=== PATIENT | male | born 1955 | race African-American/Black ===

== ENCOUNTER 2022-06-04 22:31 | Inpatient (IN) | payer OTHER, MEDICAID ==
[~2022-06-04] VITALS: Ht 182.9 cm; Wt 102.9 kg
[2022-06-04] MEDS ORDERED: SODIUM CHLORIDE 0.9% 1,000 ML IV ONE ×2 (23:30)
[2022-06-04 23:50] LABS: Albumin 3.3 g/dL (3.4-5.0); BUN/Creatinine Ratio 10.6; Calcium 8.6 mg/dL (8.5-10.1); Potassium 3.7 mmol/L (3.5-5.1)
[2022-06-04 23:53] LABS: Bilirubin, Total 0.5 mg/dL (0.2-1.0); Total Protein 6.9 g/dL (6.4-8.2)
[2022-06-04 23:55] LABS: Basophils # (auto) 0.1 10 ^3/uL (0-0.2); Basophils % (auto) 1.2 % (0.0-2.0); Eosinophils # (auto) 0.2 10 ^3/uL (0-0.8); Eosinophils % (auto) 2.6 % (0.0-7.0); Hemoglobin 13.1 g/dL (13.5-17.5); Lymphocytes # (auto) 2.5 10 ^3/uL (0.4-5.4); Lymphocytes % (auto) 41.1 % (10.0-50.0); Mean Corpuscular Hemoglobin 30.4 pg (28.0-32.0); Mean Corpuscular Hgb Conc. 33.7 g/dL (32.0-36.0); Mean Corpuscular Volume 90.1 fL (80.0-100.0); Monocytes # (auto) 0.3 10 ^3/uL (0-1.3); Monocytes % (auto) 5.6 % (0.0-12.0); Neutrophils # (auto) 3.1 10 ^3/uL (1.6-8.6); Neutrophils % (auto) 49.5 % (37.0-80.0); Nucleated Red Blood Cells % 0.7 %; Red Blood Cells 4.33 10^6/uL (4.5-5.90); Red Cell Distribution Width 14.2 % (11.8-14.3); White Blood Cell 6.2 10^3/uL (4.4-10.8)
[2022-06-05] MEDS ORDERED: IOHEXOL 300 MG/ML 100ML BOTTLE IJ ONE (00:24)
[2022-06-05 01:14] LABS: INR 1.03 (0.9-1.15)
[2022-06-05 04:31] LABS: Basophils # (auto) 0 10 ^3/uL (0-0.2); Basophils % (auto) 0.3 % (0.0-2.0); Eosinophils # (auto) 0 10 ^3/uL (0-0.8); Eosinophils % (auto) 0.5 % (0.0-7.0); Hematocrit 33.8 % (41.0-53.0); Hemoglobin 11.3 g/dL (13.5-17.5); Lymphocytes # (auto) 1.9 10 ^3/uL (0.4-5.4); Lymphocytes % (auto) 24.9 % (10.0-50.0); Mean Corpuscular Hemoglobin 30.5 pg (28.0-32.0); Mean Corpuscular Hgb Conc. 33.4 g/dL (32.0-36.0); Mean Corpuscular Volume 91.5 fL (80.0-100.0); Monocytes # (auto) 0.4 10 ^3/uL (0-1.3); Monocytes % (auto) 5.8 % (0.0-12.0); Neutrophils # (auto) 5.1 10 ^3/uL (1.6-8.6); Neutrophils % (auto) 68.5 % (37.0-80.0); Red Cell Distribution Width 14.4 % (11.8-14.3); White Blood Cell 7.4 10^3/uL (4.4-10.8)
[2022-06-05] MEDS ORDERED: NITROGLYCERIN 0.4 MG SL TAB SL PRN (04:45)
[2022-06-05] MEDS ORDERED: ACETAMINOPHEN 325 MG TAB PO PRN (04:45)
[2022-06-05] MEDS ORDERED: DOCUSATE SOD 100 MG CAP PO PRN (04:45)
[2022-06-05] MEDS ORDERED: ONDANSETRON HCL 4 MG/2 ML VIAL IV PRN (04:45)
[2022-06-05] MEDS ORDERED: HYDROcodone-ACET 5/325MG TAB PO PRN (04:45)
[2022-06-05] MEDS ORDERED: MORPHINE SULFATE INJ 2 MG/ml SYRG IV PRN ×2 (04:45)
[2022-06-05] MEDS: SODIUM CHLORIDE 0.9% 1,000 ML IV SCH (05:19)
[2022-06-05 05:36] LABS: Potassium 4.3 mmol/L (3.5-5.1)
[2022-06-05 05:41] LABS: Albumin 2.8 g/dL (3.4-5.0); BUN/Creatinine Ratio 14.4; Calcium 7.8 mg/dL (8.5-10.1)
[2022-06-05 06:08] LABS: Bilirubin, Total 0.6 mg/dL (0.2-1.0); Total Protein 5.9 g/dL (6.4-8.2)
[2022-06-05] MEDS ORDERED: FAMOTIDINE (10MG/ML) 2ML VL IV SCH (10:00)
[2022-06-05] MEDS ORDERED: PANTOPRAZOLE 40 MG/10 ML VIAL INJ IV ONE (11:15)
[2022-06-05] MEDS: SUCRALFATE 1 GM/10 ML ORAL SUSP PO SCH ×2 (12:05→17:03)
[2022-06-06 00:37] LABS: Basophils # (auto) 0 10 ^3/uL (0-0.2); Basophils % (auto) 0.3 % (0.0-2.0); Eosinophils # (auto) 0.1 10 ^3/uL (0-0.8); Eosinophils % (auto) 1.7 % (0.0-7.0); Hemoglobin 9.2 g/dL (13.5-17.5); Lymphocytes # (auto) 2.3 10 ^3/uL (0.4-5.4); Lymphocytes % (auto) 41.1 % (10.0-50.0); Mean Corpuscular Hgb Conc. 34.2 g/dL (32.0-36.0); Mean Corpuscular Volume 90.7 fL (80.0-100.0); Monocytes # (auto) 0.5 10 ^3/uL (0-1.3); Monocytes % (auto) 8.1 % (0.0-12.0); Neutrophils # (auto) 2.8 10 ^3/uL (1.6-8.6); Neutrophils % (auto) 48.8 % (37.0-80.0); Nucleated Red Blood Cells % 0.1 %; Red Blood Cells 2.98 10^6/uL (4.5-5.90); Red Cell Distribution Width 14.3 % (11.8-14.3); White Blood Cell 5.7 10^3/uL (4.4-10.8)
[2022-06-06] MEDS: SUCRALFATE 1 GM/10 ML ORAL SUSP PO SCH ×5 (01:13→22:00)
[2022-06-06] MEDS: SODIUM CHLORIDE 0.9% 1,000 ML IV SCH ×2 (01:13→14:05)
[2022-06-06] MEDS: PANTOPRAZOLE 40 MG/10 ML VIAL INJ IV SCH ×3 (01:13→21:30)
[2022-06-06 02:33] LABS: Basophils # (auto) 0 10 ^3/uL (0-0.2); Basophils % (auto) 0.4 % (0.0-2.0); Eosinophils # (auto) 0.1 10 ^3/uL (0-0.8); Eosinophils % (auto) 1.7 % (0.0-7.0); Hematocrit 27.3 % (41.0-53.0); Hemoglobin 9.3 g/dL (13.5-17.5); Lymphocytes # (auto) 2.5 10 ^3/uL (0.4-5.4); Lymphocytes % (auto) 40.8 % (10.0-50.0); Mean Corpuscular Hemoglobin 30.8 pg (28.0-32.0); Mean Corpuscular Hgb Conc. 34.1 g/dL (32.0-36.0); Mean Corpuscular Volume 90.5 fL (80.0-100.0); Monocytes # (auto) 0.5 10 ^3/uL (0-1.3); Monocytes % (auto) 7.6 % (0.0-12.0); Neutrophils % (auto) 49.5 % (37.0-80.0); Nucleated Red Blood Cells % 0.3 %; Red Blood Cells 3.02 10^6/uL (4.5-5.90); Red Cell Distribution Width 14.5 % (11.8-14.3); White Blood Cell 6.1 10^3/uL (4.4-10.8)
[2022-06-06 07:34] LABS: Basophils # (auto) 0 10 ^3/uL (0-0.2); Basophils % (auto) 0.4 % (0.0-2.0); Eosinophils # (auto) 0.1 10 ^3/uL (0-0.8); Hematocrit 25.4 % (41.0-53.0); Hemoglobin 8.9 g/dL (13.5-17.5); Lymphocytes # (auto) 2.3 10 ^3/uL (0.4-5.4); Lymphocytes % (auto) 40.3 % (10.0-50.0); Mean Corpuscular Hemoglobin 31.1 pg (28.0-32.0); Mean Corpuscular Volume 88.8 fL (80.0-100.0); Monocytes # (auto) 0.4 10 ^3/uL (0-1.3); Monocytes % (auto) 7.6 % (0.0-12.0); Neutrophils # (auto) 2.8 10 ^3/uL (1.6-8.6); Neutrophils % (auto) 49.7 % (37.0-80.0); Nucleated Red Blood Cells % 0.2 %; Red Blood Cells 2.87 10^6/uL (4.5-5.90); Red Cell Distribution Width 14.2 % (11.8-14.3); White Blood Cell 5.7 10^3/uL (4.4-10.8)
[2022-06-06 07:54] LABS: Albumin 2.8 g/dL (3.4-5.0); Calcium 7.7 mg/dL (8.5-10.1); Magnesium 2.4 mg/dL (1.6-2.6); Potassium 3.9 mmol/L (3.5-5.1)
[2022-06-06 08:03] LABS: Bilirubin, Total 0.6 mg/dL (0.2-1.0); Phosphorus 2.6 mg/dL (2.5-4.90); Total Protein 5.7 g/dL (6.4-8.2)
[2022-06-06] MEDS: OCTREOTIDE ACETATE 500 MCG in SODIUM CHL 0.9% 99 ML IV SCH ×2 (08:15→18:47)
[2022-06-06 12:02] VITALS: BP 107/60
[2022-06-06] MEDS ORDERED: NICOTINE 21MG/24 HR TOPICAL PATCH TD ONE (12:15)
[2022-06-06] MEDS ORDERED: POM PO (12:22)
[2022-06-06] MEDS ORDERED: ASPI-543 PO (12:22)
[2022-06-06 13:00] VITALS: BP 122/66
[2022-06-06 13:15] VITALS: BP 107/60
[2022-06-06 16:21] VITALS: BP 149/83
[2022-06-06] MEDS: metroNIDAZOLE 500MG/100ML 100 ML IV SCH (21:30)
[2022-06-06 22:00] VITALS: BP 106/73
[2022-06-07] VITALS (8 sets, daily range): BP systolic 90–125; BP diastolic 57–75
[2022-06-07] MEDS: OCTREOTIDE ACETATE 500 MCG in SODIUM CHL 0.9% 99 ML IV SCH ×2 (04:15→14:03)
[2022-06-07] MEDS: SODIUM CHLORIDE 0.9% 1,000 ML IV SCH (05:41)
[2022-06-07] MEDS: SUCRALFATE 1 GM/10 ML ORAL SUSP PO SCH ×4 (06:06→22:41)
[2022-06-07] MEDS: metroNIDAZOLE 500MG/100ML 100 ML IV SCH ×2 (06:06→14:03)
[2022-06-07 06:21] LABS: Basophils # (auto) 0 10 ^3/uL (0-0.2); Basophils % (auto) 0.5 % (0.0-2.0); Eosinophils # (auto) 0.1 10 ^3/uL (0-0.8); Eosinophils % (auto) 2.1 % (0.0-7.0); Hematocrit 25.2 % (41.0-53.0); Hemoglobin 8.6 g/dL (13.5-17.5); Lymphocytes # (auto) 2.5 10 ^3/uL (0.4-5.4); Mean Corpuscular Hgb Conc. 34.3 g/dL (32.0-36.0); Mean Corpuscular Volume 90.4 fL (80.0-100.0); Monocytes # (auto) 0.4 10 ^3/uL (0-1.3); Monocytes % (auto) 7.6 % (0.0-12.0); Neutrophils # (auto) 2.6 10 ^3/uL (1.6-8.6); Neutrophils % (auto) 45.8 % (37.0-80.0); Nucleated Red Blood Cells % 0.2 %; Red Blood Cells 2.78 10^6/uL (4.5-5.90); Red Cell Distribution Width 14.2 % (11.8-14.3); White Blood Cell 5.6 10^3/uL (4.4-10.8)
[2022-06-07 06:49] LABS: BUN/Creatinine Ratio 14.7; Calcium 7.9 mg/dL (8.5-10.1)
[2022-06-07] MEDS: PANTOPRAZOLE 40 MG/10 ML VIAL INJ IV SCH ×2 (09:33→22:41)
[2022-06-07] MEDS: NICOTINE 21MG/24 HR TOPICAL PATCH TD SCH (09:33)
[2022-06-07 17:29] LABS: Basophils # (auto) 0 10 ^3/uL (0-0.2); Basophils % (auto) 0.4 % (0.0-2.0); Eosinophils # (auto) 0 10 ^3/uL (0-0.8); Eosinophils % (auto) 0.3 % (0.0-7.0); Hemoglobin 7.5 g/dL (13.5-17.5); Monocytes # (auto) 0.4 10 ^3/uL (0-1.3)
[2022-06-07 17:30] LABS: Hematocrit 21.5 % (41.0-53.0); Lymphocytes # (auto) 1.6 10 ^3/uL (0.4-5.4); Mean Corpuscular Hemoglobin 31.7 pg (28.0-32.0); Mean Corpuscular Volume 90.5 fL (80.0-100.0); Monocytes % (auto) 6.4 % (0.0-12.0); Neutrophils # (auto) 4.2 10 ^3/uL (1.6-8.6); Neutrophils % (auto) 67.9 % (37.0-80.0); Nucleated Red Blood Cells % 0.3 %; Red Blood Cells 2.37 10^6/uL (4.5-5.90); Red Cell Distribution Width 14.4 % (11.8-14.3); White Blood Cell 6.3 10^3/uL (4.4-10.8)
[2022-06-07 20:58] LABS: Basophils # (auto) 0 10 ^3/uL (0-0.2); Basophils % (auto) 0.6 % (0.0-2.0); Eosinophils # (auto) 0 10 ^3/uL (0-0.8); Eosinophils % (auto) 0.2 % (0.0-7.0); Monocytes # (auto) 0.3 10 ^3/uL (0-1.3); Nucleated Red Blood Cells % 0.1 %; White Blood Cell 6.2 10^3/uL (4.4-10.8)
[2022-06-07 20:59] LABS: Hematocrit 20.9 % (41.0-53.0); Hemoglobin 7.1 g/dL (13.5-17.5); Lymphocytes # (auto) 1.4 10 ^3/uL (0.4-5.4); Lymphocytes % (auto) 23.3 % (10.0-50.0); Mean Corpuscular Hemoglobin 31.2 pg (28.0-32.0); Mean Corpuscular Hgb Conc. 34.2 g/dL (32.0-36.0); Mean Corpuscular Volume 91.2 fL (80.0-100.0); Monocytes % (auto) 5.5 % (0.0-12.0); Neutrophils # (auto) 4.4 10 ^3/uL (1.6-8.6); Neutrophils % (auto) 70.4 % (37.0-80.0); Red Blood Cells 2.29 10^6/uL (4.5-5.90); Red Cell Distribution Width 14.1 % (11.8-14.3)
[2022-06-07 21:06] LABS: Urine Bacteria NONE SEEN /hpf (None Seen); Urine Blood Negative /uL (Negative); Urine Hyaline Cast FEW /lpf (0 - 2); Urine Mucus FEW (None Seen); Urine Specific Gravity 1.028 (1.001-1.035); Urine WBC 1 /hpf (0 - 3)
[2022-06-07 21:16] LABS: INR 1.08 (0.9-1.15)
[2022-06-07 21:27] LABS: Creatinine, Urine 299 mg/dL (30.0-125.0); Sodium Urine 43 mmol/L (40-220)
[2022-06-08] VITALS (16 sets, daily range): BP systolic 94–123; BP diastolic 60–78
[2022-06-08] MEDS ORDERED: OCTREOTIDE ACETATE 100 MCG/ML VL ONE (00:18)
[2022-06-08] MEDS: metroNIDAZOLE 500MG/100ML 100 ML IV SCH ×4 (00:31→22:31)
[2022-06-08] MEDS: OCTREOTIDE ACETATE 500 MCG in SODIUM CHL 0.9% 99 ML IV SCH ×3 (00:31→23:04)
[2022-06-08] MEDS: SUCRALFATE 1 GM/10 ML ORAL SUSP PO SCH ×4 (06:14→22:31)
[2022-06-08 07:07] LABS: Basophils # (auto) 0 10 ^3/uL (0-0.2); Eosinophils # (auto) 0 10 ^3/uL (0-0.8); Nucleated Red Blood Cells % 0.5 %; Red Blood Cells 2.66 10^6/uL (4.5-5.90); White Blood Cell 9.2 10^3/uL (4.4-10.8)
[2022-06-08 07:09] LABS: Basophils % (auto) 0.3 % (0.0-2.0); Eosinophils % (auto) 0.5 % (0.0-7.0); Hematocrit 23.8 % (41.0-53.0); Hemoglobin 8.3 g/dL (13.5-17.5); Lymphocytes # (auto) 2.7 10 ^3/uL (0.4-5.4); Lymphocytes % (auto) 29.1 % (10.0-50.0); Mean Corpuscular Hemoglobin 31.3 pg (28.0-32.0); Mean Corpuscular Hgb Conc. 34.9 g/dL (32.0-36.0); Mean Corpuscular Volume 89.7 fL (80.0-100.0); Monocytes # (auto) 0.6 10 ^3/uL (0-1.3); Monocytes % (auto) 6.5 % (0.0-12.0); Neutrophils # (auto) 5.9 10 ^3/uL (1.6-8.6); Neutrophils % (auto) 63.6 % (37.0-80.0); Red Cell Distribution Width 14.1 % (11.8-14.3)
[2022-06-08 08:01] LABS: BUN/Creatinine Ratio 19.9; Calcium 7.2 mg/dL (8.5-10.1); Potassium 4.2 mmol/L (3.5-5.1)
[2022-06-08] MEDS: PANTOPRAZOLE 40 MG/10 ML VIAL INJ IV SCH ×2 (09:25→22:31)
[2022-06-08] MEDS: NICOTINE 21MG/24 HR TOPICAL PATCH TD SCH (09:25)
[2022-06-08] MEDS: SODIUM CHLORIDE 0.9% 1,000 ML IV SCH ×2 (13:31→16:05)
[2022-06-08] MEDS ORDERED: CLINIMIX PER PHARMACY 0 ML IV SCH (17:30)
[2022-06-08] MEDS: VANCOMYCIN HCL 125MG/5ML ORAL SOL PO SCH ×2 (18:42→22:31)
[2022-06-08] MEDS ORDERED: AMINO ACID INFUSION IN D10W 1,000 ML IV NR (20:00)
[2022-06-09 01:06] VITALS: BP 123/68
== END 2022-06-09 03:40 | disposition short-term general hospital (02) | DRG 371 ==
LOC: ER 22:31 → TELE 06-05 04:54 → TELE-CENTR 06-05 23:48 → TELE 06-06 01:33 → TELE-WESTW 06-06 13:02
PROVIDERS: ADMIT Nurse Practitioner Family; ATTEND Internal Medicine
PROC: 30233N1 Transfusion of Nonautologous Red Blood Cells into Peripheral Vein, Percutaneous Approach (ICD-10-PCS; principal; 2022-06-07)
PROC: 30233K1 Transfusion of Nonautologous Frozen Plasma into Peripheral Vein, Percutaneous Approach (ICD-10-PCS; 2022-06-08)
DX: A04.72 Enterocolitis due to Clostridium difficile, not specified as recurrent (principal); K57.31 Diverticulosis of large intestine without perforation or abscess with bleeding; E44.0 Moderate protein-calorie malnutrition; N17.9 Acute kidney failure, unspecified; I71.40 Abdominal aortic aneurysm, without rupture, unspecified; D64.9 Anemia, unspecified; I10 Essential (primary) hypertension; Z86.79 Personal history of other diseases of the circulatory system; Z93.3 Colostomy status; Z68.31 Body mass index [BMI] 31.0-31.9, adult
CPT/HCPCS: 36415; 71260; 74177; 80048; 80053; 81001; 82270; 82570; 82962; 83036; 83735; 83880; 84100; 84300; 84443; 85025; 85048; 85384; 85610; 86850; 86900; 86901; 86920; 87045; 87426; 87427; 87493; 93005; 96360; 96361; 99291; C9113; G0378; J3490

== ENCOUNTER 2022-12-12 13:08 | Emergency (ER) | payer OTHER, MEDICAID ==
[~2022-12-12] VITALS: Ht 188 cm; Wt 105.0 kg
[~2022-12-12 13:08] MED LIST: ASPI-543 PO; POM PO
[2022-12-12 17:19] VITALS: BP 129/90; PULSE 94; RESP 16; TEMP 97.9; O2SAT 98
[2022-12-12] MEDS ORDERED: DexAMETHasone SOD PHOS 10MG/1ML VIAL INJ IM ONE (17:45)
== END 2022-12-12 17:45 | disposition home or self-care (01) ==
LOC: ER 13:08
DX: J40 Bronchitis, not specified as acute or chronic (principal); I10 Essential (primary) hypertension; F17.210 Nicotine dependence, cigarettes, uncomplicated
CPT/HCPCS: 71046; 96372; 99283; J1100

== ENCOUNTER 2023-03-27 22:34 | Emergency (ER) | payer OTHER, MEDICAID ==
[~2023-03-27] VITALS: Ht 188 cm; Wt 104.0 kg
[2023-03-28] MEDS ORDERED: LABETALOL HCL 5 MG/ML 4ML SYRINGE IV ONE
[2023-03-28 00:28] VITALS: PULSE 78; RESP 19; O2SAT 95
[2023-03-28 00:29] LABS: Basophils # (auto) 0 10 ^3/uL (0-0.2); Basophils % (auto) 0.2 % (0.0-2.0); Eosinophils # (auto) 0 10 ^3/uL (0-0.8); Eosinophils % (auto) 0.2 % (0.0-7.0); Hematocrit 46.1 % (41.0-53.0); Hemoglobin 15.2 g/dL (13.5-17.5); Lymphocytes # (auto) 0.9 10 ^3/uL (0.4-5.4); Lymphocytes % (auto) 16.3 % (10.0-50.0); Mean Corpuscular Hemoglobin 30.1 pg (28.0-32.0); Mean Corpuscular Volume 91.2 fL (80.0-100.0); Monocytes # (auto) 0.3 10 ^3/uL (0-1.3); Monocytes % (auto) 5.5 % (0.0-12.0); Neutrophils # (auto) 4.3 10 ^3/uL (1.6-8.6); Neutrophils % (auto) 77.8 % (37.0-80.0); Nucleated Red Blood Cells % 0.1 %; Red Blood Cells 5.05 10^6/uL (4.5-5.90); Red Cell Distribution Width 14.8 % (11.8-14.3); White Blood Cell 5.5 10^3/uL (4.4-10.8)
[2023-03-28 00:41] LABS: Alanine Aminotransferase 21 U/L (7-40); Albumin 4.4 g/dL (3.2-4.8); Alkaline Phosphatase 66 U/L (46-116); Anion Gap 8 (5-15); Aspartate Aminotransferase 25 U/L (13-40); BUN/Creatinine Ratio 13.5 (10.0-20.0); Blood Urea Nitrogen 14 mg/dL (9-23); Calcium 9.2 mg/dL (8.7-10.4); Carbon Dioxide 24 mmol/L (20-30); Chloride 97 mmol/L (98-107); Glucose 110 mg/dL (74-106); Lipase 26 U/L (12-53); Sodium 129 mmol/L (136-145)
[2023-03-28 00:42] LABS: Bilirubin, Total 1.1 mg/dL (0.2-1.0); Total Protein 7.2 g/dL (5.7-8.2)
[2023-03-28] MEDS ORDERED: LABETALOL INJECTION 250 MG in SODIUM CHL 0.9% 200 ML IV ONE (00:45)
[2023-03-28] MEDS ORDERED: ONDANSETRON HCL 4 MG/2 ML VIAL IV ONE (01:00)
[2023-03-28] MEDS ORDERED: MORPHINE SULFATE 4 MG/ML SYR/VIAL IV ONE (01:00)
[2023-03-28 01:12] LABS: INR 1.06 (0.9-1.15); Prothrombin Time 11.3 sec (9.3-11.8)
[2023-03-28] MEDS ORDERED: LABETALOL HCL 5 MG/ML ML 20ML VIAL IV ONE (01:21)
[2023-03-28 02:15] VITALS: BP 137/90; PULSE 68; RESP 17; TEMP 98; O2SAT 94
[2023-03-28 03:29] LABS: Urine Bacteria NONE SEEN /hpf (None Seen); Urine Blood Negative /uL (Negative); Urine Clarity Clear (Clear); Urine Color Yellow (Yellow); Urine Mucus FEW (None Seen); Urine Protein, UAD 1+ (Negative); Urine Specific Gravity > 1.050 (1.001-1.035); Urine Urobilinogen Normal (Negative); Urine WBC <1 /hpf (0 - 3)
== END 2023-03-28 02:34 | disposition short-term general hospital (02) ==
LOC: ER 22:34
DX: I71.40 Abdominal aortic aneurysm, without rupture, unspecified (principal); I10 Essential (primary) hypertension; F17.210 Nicotine dependence, cigarettes, uncomplicated; Z79.899 Other long term (current) drug therapy
CPT/HCPCS: 36415; 71260; 74177; 80053; 81001; 83690; 84484; 85025; 85610; 93005; 96365; 96375; 96376; 99285; J2270; J2405; J3490; J7050; Q9967

== ENCOUNTER 2024-01-10 22:19 | Emergency (ER) | payer OTHER, MEDICAID ==
[~2024-01-10] VITALS: Ht 188 cm; Wt 101.1 kg
[2024-01-10 22:38] VITALS: BP 180/90; PULSE 108; RESP 20; O2SAT 96
== END 2024-01-10 23:59 | disposition left against medical advice (07) ==
LOC: ER 22:19
DX: T63.391A Toxic effect of venom of other spider, accidental (unintentional), initial encounter (principal); Z53.21 Procedure and treatment not carried out due to patient leaving prior to being seen by health care provider; Y92.89 Other specified places as the place of occurrence of the external cause

== ENCOUNTER 2024-06-04 11:47 | Inpatient (IN) | payer OTHER, MEDICAID ==
[~2024-06-04] VITALS: Ht 188 cm; Wt 87.8 kg
[2024-06-05 17:45] VITALS: O2SAT 4
[2024-06-05] MEDS ORDERED: NITROGLYCERIN 0.4 MG SL TAB SL PRN (18:15)
[2024-06-05 18:35] VITALS: BP 147/88; PULSE 85; RESP 17; TEMP 98.5; O2SAT 100
[2024-06-05] MEDS ORDERED: LABETALOL HCL 20 MG/4 ML VL IV PRN (19:00)
[2024-06-05] MEDS ORDERED: ONDANSETRON HCL 4 MG/2 ML VIAL IV PRN (19:00)
[2024-06-05 19:10] VITALS: BP 147/88; PULSE 85; RESP 17; TEMP 98.5; O2SAT 100
[2024-06-05 20:00] VITALS: PULSE 80; RESP 17; O2SAT 98
[2024-06-05] MEDS: ASPirin 81 mg TAB PO ONE (20:41)
[2024-06-05] MEDS: CLOPIDOGREL BISULFATE 75 MG TAB PO ONE (20:41)
[2024-06-05 21:00] VITALS: BP 141/91; PULSE 80; RESP 17; TEMP 97.7; O2SAT 98
[2024-06-05 21:03] LABS: Basophils # (auto) 0 10 ^3/uL (0-0.2); Basophils % (auto) 0.6 % (0.0-2.0); Eosinophils # (auto) 0.1 10 ^3/uL (0-0.8); Eosinophils % (auto) 1.9 % (0.0-7.0); Hematocrit 41.1 % (41.0-53.0); Lymphocytes # (auto) 1.5 10 ^3/uL (0.4-5.4); Lymphocytes % (auto) 22.2 % (10.0-50.0); Mean Corpuscular Hemoglobin 30.6 pg (28.0-32.0); Mean Corpuscular Volume 90.1 fL (80.0-100.0); Monocytes # (auto) 0.7 10 ^3/uL (0-1.3); Monocytes % (auto) 10.5 % (0.0-12.0); Neutrophils # (auto) 4.5 10 ^3/uL (1.6-8.6); Neutrophils % (auto) 64.8 % (37.0-80.0); Nucleated Red Blood Cells % 0.1 %; Platelet Count (auto) 234 10^3/uL (140-450); Red Blood Cells 4.56 10^6/uL (4.5-5.90); Red Cell Distribution Width 14.4 % (11.8-14.3)
[2024-06-05] MEDS: METOPROLOL TARTRATE 25 MG TAB PO SCH (21:23)
[2024-06-05] MEDS: CARVEDILOL 12.5 MG TAB PO SCH (21:23)
[2024-06-05] MEDS: SODIUM CHLORIDE 0.9% 1,000 ML IV SCH ×2 (21:24→22:45)
[2024-06-05] MEDS: hydrALAZINE HCL 20 MG/ML VL IV SCH (21:24)
[2024-06-05 21:52] LABS: INR 1.03 (0.9-1.15); Partial Thromboplastin Time 27.5 SEC (24.5-34.5); Prothrombin Time 10.9 sec (9.3-11.8)
[2024-06-05 21:55] LABS: Alanine Aminotransferase 18 U/L (7-40); Albumin 4.3 g/dL (3.2-4.8); Alkaline Phosphatase 97 U/L (46-116); Anion Gap 10 (5-15); Aspartate Aminotransferase 17 U/L (13-40); BUN/Creatinine Ratio 18.5 (10.0-20.0); Calcium 9.8 mg/dL (8.7-10.4); Glucose 104 mg/dL (74-106); Total Protein 7.5 g/dL (5.7-8.2)
[2024-06-05 21:56] LABS: Bilirubin, Total 0.6 mg/dL (0.2-1.0); Blood Urea Nitrogen 28 mg/dL (9-23); Carbon Dioxide 37 mmol/L (20-31); Chloride 88 mmol/L (98-107); Potassium 2.8 mmol/L (3.5-5.1); Sodium 135 mmol/L (136-145)
--- NOTE | 2024-06-05 22:11 | DVHHP2 ---
Admitting Diagnosis: ACS History of Present Illness History Source: Patient HPI This is a 68-year-old male with a PMH of CAD, COPD, HTN, stents, CHF who was admitted at [facility] – [place] due to acute hypoxic respiratory failure, COPD exacerbation and elevated troponin. Patient was intubated from 05/20 to 05/29. Patients echocardiogram showed end-stage dilated cardiomyopathy. Left ventricular ejection fraction in the range of only 15%. Dilated all cardiac chambers. Severe global hypokinesis. Right ventricle and left ventricles are also remarkably hypokinetic. Calcified mitral leaflets. Aortic sclerosis. Moderately severe mitral valve regurgitation. There is no pericardial effusion. Patient underwent left heart catheterization, [facility] selective left and right coronary artery angiography on 06/04/24. The patient was found to have critical narrowing of a large circumflex artery in its mid region and is 99% block type C lesion preceded by tortuosity. Normal left main. Normal left anterior descending artery stenosis. The large posterior descending artery arising from the right coronary artery has critical narrowing 99% from its origin. Patient was transferred here for PTCA/stent of circumflex and RCA tomorrow. Risks and benefits have been discussed with the patient. Home Meds Reported Medications Patients Own Medication (PATIENTS OWN MEDICATION) ., 1 TAB PO BID PTS OWN MED-OBTAIN FROM PT AND SEND TO RX DRUG: FREQ: RX# EXP: DATE DISP: TECH: [facility]: 06/06/22 Aspirin (Aspir-Low) 81 Mg Tab, 81 MG PO DAILY for 30 Days, MG 06/06/22 Past Medical History Patient Family History: Patient reports no known family medical history. Review of Systems Constitutional: No symptom reported Ears, Nose, & Throat: No symptom reported Eyes: No symptom reported Pulmonary/Respiratory: Dyspnea Cardiovascular: Chest Pain Gastrointestinal: No symptom reported Genitourinary: No symptom reported Musculoskeletal: No symptom reported Skin: No symptom reported Psychiatric: No symptom reported Endocrine: No symptom reported Hemotologic/Lymphatic: No symptom reported H&P Exam Vital Signs Vital Signs Date Time Temp Pulse Resp B/P (MAP) Pulse Ox O2 Delivery O2 Flow Rate FiO2 06/05/24 21:24 141/91 06/05/24 21:23 80 06/05/24 19:10 98.5 17 100 98.5 06/05/24 17:45 Nasal Cannula* 4 36 General Appeara: Well developed, Well nourished, Normal Appearance Head Exam: Normal inspection Neck Exam: Normal inspection, Non-tender, Normal alignment Eye Exam: bilateral eye Normal inspection, bilateral eye PERRL, bilateral eye EOMI Ear Exam: bilateral ear Auricle normal, bilateral ear Canal normal, bilateral ear TM normal Nasal Exam: Normal inspection Mouth: Normal Inspection Pulmonary/Respiratory: Normal inspection, Normal breath sounds, Chest non- tender, Lungs clear Cardiovascular/Chest: Normal inspection, Regular rate, Normal Rhythm Abdominal Exam: Normal bowel sounds, Soft, No tenderness, No hepatospenomegaly, No masses Rectal Exam: Normal inspection Back Exam: Normal inspection Pelvic Exam: External exam normal, Bimanual exam normal, Speculum exam normal Male Genital Exam: Normal genitalia, Normal prostate Shoulder Exam: Normal inspection, Non-tender, Normal ROM Elbow/Forearm Exam: Normal inspection, Non-tender, Normal ROM Wrist Exam: Normal inspection, Non-tender, Normal ROM Hand Exam: Normal inspection, Non-tender, Normal ROM Hip exam: Normal inspection, Non-tender, Normal range of motion Legs: bilateral leg non-tender, bilateral leg normal inspection, bilateral leg normal range of motion, bilateral leg no evidence of injury Knees: bilateral knee non-tender, bilateral knee normal inspection, bilateral knee normal range of motion, bilateral knee no evidence of injury Ankle Exam: bilateral ankle Normal inspection, bilateral ankle Non-tender, bilateral ankle Normal range of motion, bilateral ankle No evidence of injury Foot: bilateral foot non-tender, bilateral foot normal inspection, bilateral foot normal range of motion, bilateral foot no evidence of injury Tendon/ Neuro: Normal sensation, Normal motor function, Normal tendon functions 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: Normal hearing, Normal speech, PERRL Motor/Sensory: Normal sensory function, Normal motor function, Negative Babinski's sign Deep Tendon Ref: All intact Neuro/Mental St: Alert, Oriented Appearance: Appropriate appearance, Appropriate insight Eye contact/ Speech: Cooperative, Good eye contact, Normal speech Coordination/Gait: Normal finger->nose, Normal gait, Negative Romberg's sign Skin Exam: Normal inspection, Normal color, Warm/dry Lymphatic: Normal inspection Labs/Xrays Labs Test 06/05/24 20:51 Range/Units White Blood Count 7.0 4.4-10.8 10^3/uL Red Blood Count 4.56 4.5-5.90 10^6/uL Hemoglobin 14.0 13.5-17.5 g/dL Hematocrit 41.1 41.0-53.0 % Mean Corpuscular Volume 90.1 80.0-100.0 fL Mean Corpuscular Hemoglobin 30.6 28.0-32.0 pg Mean Corpuscular Hemoglobin Concent 34.0 32.0-36.0 g/dL Red Cell Distribution Width 14.4 H 11.8-14.3 % Platelet Count 234 140-450 10^3/uL Mean Platelet Volume 7.2 6.9-10.8 fL Neutrophils (%) (Auto) 64.8 37.0-80.0 % Lymphocytes (%) (Auto) 22.2 10.0-50.0 % Monocytes (%) (Auto) 10.5 0.0-12.0 % Eosinophils (%) (Auto) 1.9 0.0-7.0 % Basophils (%) (Auto) 0.6 0.0-2.0 % Neutrophils # (Auto) 4.5 1.6-8.6 10 ^3/uL Lymphocytes # (Auto) 1.5 0.4-5.4 10 ^3/uL Monocytes # (Auto) 0.7 0-1.3 10 ^3/uL Eosinophils # (Auto) 0.1 0-0.8 10 ^3/uL Basophils # (Auto) 0 0-0.2 10 ^3/uL Nucleated Red Blood Cells 0.1 % Prothrombin Time 10.9 9.3-11.8 sec Prothrombin Time INR 1.03 0.9-1.15 Activated Partial Thromboplast Time 27.5 24.5-34.5 SEC Sodium Level 135 L 136-145 mmol/L Potassium Level 2.8 L 3.5-5.1 mmol/L Chloride Level 88 L 98-107 mmol/L Carbon Dioxide Level 37 H 20-31 mmol/L Anion Gap 10 5-15 Blood Urea Nitrogen 28 H 9-23 mg/dL Creatinine 1.51 H 0.700-1.30 mg/dL Glomerular Filtration Rate Calc 50 >90 mL/min BUN/Creatinine Ratio 18.5 10.0-20.0 Serum Glucose 104 74-106 mg/dL Calcium Level 9.8 8.7-10.4 mg/dL Total Bilirubin 0.6 0.2-1.0 mg/dL Aspartate Amino Transferase (AST) 17 13-40 U/L Alanine Aminotransferase (ALT) 18 7-40 U/L Alkaline Phosphatase 97 46-116 U/L Total Protein 7.5 5.7-8.2 g/dL Albumin 4.3 3.2-4.8 g/dL Assessment/Plan Primary Diagnosis ACS. NSTEMI. CAD with stents. HTN. End-stage dilated cardiomyopathy. Plan Admit patient to the hospital for further evaluation and treatment. PTCA/stent of circumflex and RCA tomorrow. Risks and benefits have been discussed with the patient. NPO midnight. IVFs. Aspirin, Plavix, Metoprolol. Morphine for pain management. Nitro SL. Coreg, Nifedipine. Diuretics with Lasix. IV Labetalol for SBP >150. IV Hydralazine 10 mg Q 8 hours. Additional plan as per the hospital course. A total of 45 minutes was spent reviewing the patient record, examining the patient, making a diagnostic and therapeutic plan, discussing this plan with medical personnel, following up on diagnostic studies and following the patient for clinical stability excluding any and all procedures. At least 50% of this time was spent in direct, [id number] contact. Plan discussed with: Patient KRISTIN SIBLEY MD Jun 05, 2024 22:11
--- NOTE | 2024-06-05 23:38 | DVH ---
CHEST RADIOGRAPH Indication: PRE-OP Technique: Single frontal view of the chest was obtained COMPARISON: None FINDINGS: Lines and Tubes: None. Partially visualized aortic stent graft in descending thoracic aorta. Lungs: Clear Pleura: No effusion. No pneumothorax. Cardiomediastinal contours: Unremarkable Bones: Unremarkable IMPRESSION: No abnormality demonstrated.
[2024-06-06] VITALS (13 sets, daily range): BP systolic 100–173; BP diastolic 52–94; PULSE 46–89; RESP 16–24; TEMP 97.7–100.2; O2SAT 94–99
[2024-06-06] MEDS: FUROSEMIDE 40 MG/4 ML VIAL IV SCH (05:41)
[2024-06-06] MEDS: HEPARIN IN NS 1000Units/500mL 1,500 ML ONE (05:44)
[2024-06-06] MEDS: IODIXANOL 320MG/ML 100ML BTL IV ONE ×5 (05:44→08:49)
[2024-06-06] MEDS: MIDAZOLAM HCL 2MG/2ML 2ml VIAL (1mg/ml) ONE ×3 (05:50→08:19)
[2024-06-06] MEDS: SODIUM CHL 0.9% 50 ML ONE ×2 (05:50→07:30)
[2024-06-06] MEDS: LIDOCAINE 2%HCL (LOCAL ANESTH.) INJ 20ML MDV ONE (05:50)
[2024-06-06] MEDS: ANGIOMAX 250 MG VIAL IV ONE ×2 (05:50→07:30)
[2024-06-06] MEDS: fentaNYL CITRATE 100 MCG/2 ML VL ONE ×2 (05:50→08:18)
[2024-06-06] MEDS: VERAPAMIL 2.5MG/ML INJ 2ML VIAL IV ONE (06:36)
[2024-06-06] MEDS: LABETALOL HCL 5 MG/ML ML 20ML VIAL IV ONE (06:48)
[2024-06-06] MEDS: POTASSIUM CHLORIDE 20 MEQ, LIDOCAINE 1% (LOCAL ANESTH.) 2 ML in SODIUM CHL 0.9% 100 ML IV ONE (07:30)
[2024-06-06] MEDS: POTASSIUM CHL 20 Meq TABLET PO ONE ×2 (07:30→10:14)
[2024-06-06] MEDS: hydrALAZINE HCL 20 MG/ML VL ONE (08:35)
[2024-06-06] MEDS ORDERED: NIFEdipine ER 30 MG TAB PO SCH (10:00)
[2024-06-06] MEDS: SODIUM CHLORIDE 0.9% 1,000 ML IV ONE ×2 (10:15→10:30)
[2024-06-06] MEDS: SODIUM CHLORIDE 0.9% 1,000 ML IV SCH (10:30)
--- NOTE | 2024-06-06 10:34 | DVHPN2 ---
Progress Note Date Seen: Jun 06, 2024 Medical Necessity Reason Pt with a Central, PICC or Fol: Yes The following are medically ne: Parker Catheter Reason for parker catheter: Strict I&O Subjective Patient reports: No new complaints Review of Systems: HEENT:Normal, CVS:Normal, RESPIRATORY:Normal, GI:Normal, :Normal, MSK:Normal, NEURO:Normal Objective vital signs Vital Sign Date Time Temp Pulse Resp B/P (MAP) Pulse Ox O2 Delivery O2 Flow Rate FiO2 06/06/24 05:41 121/52 06/06/24 05:00 97.8 80 16 98 97.8 06/05/24 20:00 Nasal Cannula* 2 28 Total Intake and Output 06/05/24 06/05/24 06/06/24 15:00 23:00 07:00 Intake Total 625 ml Output Total 1100 ml Balance -475 ml medications Current Medications Medications Dose Ordered Sig/Whitney Route Start Time Stop Time Status Last Admin Dose Admin Aspirin 81 mg DAILY PO 06/06/24 10:00 Clopidogrel Bisulfate 75 mg DAILY PO 06/06/24 10:00 Nitroglycerin 0.4 mg Q5MINP PRN SL 06/05/24 18:15 Morphine Sulfate 2 mg Q30M PRN IV 06/05/24 18:15 Carvedilol 12.5 mg Q12HR PO 06/05/24 22:00 06/05/24 21:23 12.5 MG Furosemide 40 mg BIDD IV 06/06/24 06:00 Hydralazine HCl 10 mg Q8HPRN IV 06/05/24 22:00 06/06/24 05:41 10 MG Labetalol HCl 10 mg Q2HPRN PRN IV 06/05/24 19:00 Metoprolol Tartrate 25 mg BID PO 06/05/24 22:00 06/05/24 21:23 25 MG Ondansetron HCl 4 mg Q4HPRN PRN IV 06/05/24 19:00 Sodium Chloride 1,000 ml @ 100 mls/hr Q10H IV 06/06/24 10:30 06/07/24 09:00 UNV Atorvastatin Calcium 80 mg HS PO 06/06/24 22:00 UNV Examination: GENERAL:Normal, HEENT:Normal, NECK:Normal, LUNGS:Normal, CVS:Normal, ABDOMEN:Normal, MSK:Normal, SKIN:Normal, NEURO:Normal, :Normal laboratory and microbiology Laboratory Tests 06/05/24 20:51 Test 06/05/24 20:51 Range/Units Serum Glucose 104 74-106 mg/dL Problem List/Assessment/Plan Problem List/Assessment/Plan #1 acute resp failure s/p recent intubation #2 cad: c angio today #3 copd #4 acute on chronic systolic heart failure: lasix iv #5 htn #6 h/o AAA advance care planning- full code- time spent 19 mins Plan discussed with: Other (rn) My Orders My Orders Orders - KEYANNA AMIN MD Procedure Category Date Status Time Atorvastatin (Lipitor) PHA 06/06/24 Logged 22:00 Urinalysis LAB 06/06/24 Uncollected 10:22 Basic Metabolic Panel LAB 06/06/24 Logged 10:22 Complete Blood Count LAB 06/07/24 Verified 06:00 Comprehensive LAB 06/07/24 Verified Metabolic Panel 06:00 Magnesium LAB 06/07/24 Verified 05:00 Chest Portable XY 06/07/24 Logged 06:00 Furosemide Injection PHA 06/07/24 Transmitted (Lasix Injection) 10:00 Labetalol Hcl PHA 06/06/24 Transmitted (Labetalol Hcl) 10:30 Date of Service: Jun 06, 2024 Billing Provider: KEYANNA AMIN MD Common Visit Codes: [id number] INP/OBS CARE(HIGH) Secondary Visit Codes: [id number] CARE PLAN 30 MINUTES KEYANNA AMIN MD Jun 06, 2024 10:34
[2024-06-06] MEDS: ASPirin 81 mg TAB PO SCH (10:52)
[2024-06-06] MEDS: CLOPIDOGREL BISULFATE 75 MG TAB PO SCH (10:53)
--- NOTE | 2024-06-06 10:57 | DVHDS2 ---
Discharge Summary Date of Admission Jun 05, 2024 at 17:54 Date of Discharge: Jun 06, 2024 Labs/Diagnostic Data: Laboratory Results Test 06/06/24 05:11 06/05/24 20:51 White Blood Count 7.0 10^3/uL (4.4-10.8) Red Blood Count 4.56 10^6/uL (4.5-5.90) Hemoglobin 14.0 g/dL (13.5-17.5) Hematocrit 41.1 % (41.0-53.0) Mean Corpuscular Volume 90.1 fL (80.0-100.0) Mean Corpuscular Hemoglobin 30.6 pg (28.0-32.0) Mean Corpuscular Hemoglobin Concent 34.0 g/dL (32.0-36.0) Red Cell Distribution Width 14.4 % (11.8-14.3) Platelet Count 234 10^3/uL (140-450) Mean Platelet Volume 7.2 fL (6.9-10.8) Neutrophils (%) (Auto) 64.8 % (37.0-80.0) Lymphocytes (%) (Auto) 22.2 % (10.0-50.0) Monocytes (%) (Auto) 10.5 % (0.0-12.0) Eosinophils (%) (Auto) 1.9 % (0.0-7.0) Basophils (%) (Auto) 0.6 % (0.0-2.0) Neutrophils # (Auto) 4.5 10 ^3/uL (1.6-8.6) Lymphocytes # (Auto) 1.5 10 ^3/uL (0.4-5.4) Monocytes # (Auto) 0.7 10 ^3/uL (0-1.3) Eosinophils # (Auto) 0.1 10 ^3/uL (0-0.8) Basophils # (Auto) 0 10 ^3/uL (0-0.2) Nucleated Red Blood Cells 0.1 % Prothrombin Time 10.9 sec (9.3-11.8) Prothrombin Time INR 1.03 (0.9-1.15) Activated Partial Thromboplast Time 27.5 SEC (24.5-34.5) Total Bilirubin 0.6 mg/dL (0.2-1.0) Aspartate Amino Transferase (AST) 17 U/L (13-40) Alanine Aminotransferase (ALT) 18 U/L (7-40) Alkaline Phosphatase 97 U/L (46-116) Total Protein 7.5 g/dL (5.7-8.2) Albumin 4.3 g/dL (3.2-4.8) Other Laboratory Tests 06/05/24 20:51 Brief Hx & Hospital Course: see dictated note Condition at Discharge: Fair Final Diagnosis/Problems List cad Discharge Disposition: Acute Care Facility Discharge Instruct/Medications Diet: Cardiac 2g Na,low cholest Activity: No Restrictions, As Tolerated Follow Up/Referral: fu with dr Maki Strickland Medications: per may Discharge Statement: "Patient was advised to return to the ER or call 911 if any headaches, dizziness, shortness of breath, chest pain, abdominal pain, bleeding, fevers, or worsening of medical condition. Patient was counseled about treatment plan, medications, possible side effects, patientverbalized understanding. All questions were answered to the best of my ability. This discharge took greater then 30 minutes in planning, reviewing documentation, counseling the patient, and discussing with other team members." ASSESSMENT ASSESSMENT Assessment cad Date of Service: Jun 06, 2024 Billing Provider: KEYANNA AMIN MD Common Visit Codes: [id number] DISCH DAY >30min KEYANNA AMIN MD Jun 06, 2024 10:57
[2024-06-06 11:03] LABS: Anion Gap 7 (5-15); Calcium 9.8 mg/dL (8.7-10.4)
[2024-06-06 11:08] LABS: Glucose 90 mg/dL (74-106)
--- NOTE | 2024-06-06 11:08 | DVHDS ---
DATE OF DISCHARGE: 06/06/2024 HISTORY OF PRESENT ILLNESS: The patient is a 68-year-old gentleman who was transferred from [facility] by Dr. Rigo Strickland. The patient had recently been intubated and was transferred for coronary angiography and intervention on the circumflex and right coronary artery. The patient has previous history of COPD, previous stents, congestive heart failure, hypertension, aortic aneurysm with peripheral stents as well. HOSPITAL COURSE: The patient underwent coronary angiography by Dr. Strickland. The patient was hypokalemic. As per my discussion with Dr. Strickland, the patient needs now to be transferred to [facility] as his coronary narrowing could not be intervened by him. The patient will be transferred once arrangements are made. FINAL DIAGNOSES: Therefore: * Coronary artery disease with previous stents. * Chronic diastolic heart failure. * Abdominal aortic aneurysm with peripheral stents. * Hypertension. * Chronic obstructive pulmonary disease. * Hypokalemia. * Chronic kidney disease, stage 3. * Acute respiratory failure, with recent intubation. Time spent in discharge planning and review of plan with commercial sales consultant and paperwork was 39 minutes. MD JE Jules/JOYCE TID: [id number] RECEIPT: [id number]
[2024-06-06 11:10] LABS: Blood Urea Nitrogen 28 mg/dL (9-23); Carbon Dioxide 38 mmol/L (20-31); Chloride 88 mmol/L (98-107); Sodium 133 mmol/L (136-145)
[2024-06-06 11:34] LABS: BUN/Creatinine Ratio 16.3 (10.0-20.0)
--- NOTE | 2024-06-06 17:49 | DVHPN2 ---
Progress Note - Dictate Date Seen: Jun 06, 2024 Medical Necessity Reason Pt with a Central, PICC or Fol: Yes The following are medically ne: Parker Catheter Reason for parker catheter: Strict I&O Subjective Patient was seen and evaluated in follow up. Patient underwent coronary angiography, coronary narrowing could not be intervened. Patient needs to be transferred to [facility] under the care of Dr. Roy for coronary intervention. 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 Telemetry reviewed. vital signs Vital Sign Date Time Temp Pulse Resp B/P (MAP) Pulse Ox O2 Delivery O2 Flow Rate FiO2 06/06/24 11:06 88 20 161/82 (108) 95 06/06/24 10:21 97.8 97.8 06/05/24 20:00 Nasal Cannula* 2 28 Total Intake and Output 06/05/24 06/05/24 06/06/24 15:00 23:00 07:00 Intake Total 625 ml Output Total 1100 ml Balance -475 ml medications Current Medications Medications Dose Ordered Sig/Whitney Route Start Time Stop Time Status Last Admin Dose Admin Aspirin 81 mg DAILY PO 06/06/24 10:00 06/06/24 10:52 81 MG Clopidogrel Bisulfate 75 mg DAILY PO 06/06/24 10:00 06/06/24 10:53 75 MG Nitroglycerin 0.4 mg Q5MINP PRN SL 06/05/24 18:15 Morphine Sulfate 2 mg Q30M PRN IV 06/05/24 18:15 Hydralazine HCl 10 mg Q8HPRN IV 06/05/24 22:00 06/06/24 05:41 10 MG Metoprolol Tartrate 25 mg BID PO 06/05/24 22:00 06/06/24 10:53 25 MG Ondansetron HCl 4 mg Q4HPRN PRN IV 06/05/24 19:00 Sodium Chloride 1,000 ml @ 100 mls/hr Q10H IV 06/06/24 10:30 06/07/24 09:00 Atorvastatin Calcium 80 mg HS PO 06/06/24 22:00 Furosemide 40 mg DAILY IV 06/07/24 10:00 Labetalol HCl 10 mg Q4HP PRN IV 06/06/24 10:30 objective GENERAL: Awake, alert, oriented. LUNGS: Clear. CARDIOVASCULAR: Heart sounds are good. ABDOMEN: Soft. laboratory and microbiology Laboratory Tests 06/06/24 05:11 06/05/24 20:51 Test 06/06/24 05:11 Range/Units Serum Glucose 90 74-106 mg/dL Problem List ACS. NSTEMI. Coronary artery disease with previous stents. Hypertension. End-stage dilated cardiomyopathy. Chronic diastolic heart failure. Abdominal aortic aneurysm with peripheral stents. Chronic obstructive pulmonary disease. Hypokalemia. Chronic kidney disease, stage 3. Acute respiratory failure, with recent intubation. Assessment/Plan Continued all current supportive medical care. Aspirin, Lipitor, Plavix, Metoprolol. Diuretics with Lasix. IV Hydralazine 10 mg Q 8 hours. IV Labetalol for SBP >150. Morphine for pain management. Nitro SL. Transfer to [facility]. Additional plan as per the hospital course. Plan discussed with: Patient KRISTIN SIBLEY MD Jun 06, 2024 12:16
[2024-06-06] MEDS: ATORVASTATIN 20 MG TAB PO SCH (21:35)
[2024-06-07] VITALS (8 sets, daily range): BP systolic 138–163; BP diastolic 69–92; PULSE 82–93; RESP 18–20; TEMP 97.9–99.2; O2SAT 94–100
[2024-06-07] MEDS: MORPHINE SULFATE INJ 2 MG/ml SYRG IV PRN (02:28)
--- NOTE | 2024-06-07 05:51 | DVHOP ---
DATE OF SURGERY: 06/06/2024 TECHNIQUE PERFORMED: * Emergency case. * Insertion of a 7-Ukrainian arterial line from right femoral artery. * Management of conscious sedation. * Left coronary angiography. * Insertion of the angioplasty wire to circumflex lesion and insertion of the balloon 2.5 x 15 mm length balloon in circumflex artery. * Insertion of a 2.0 x 12 mm length semi-compliant balloon in circumflex artery. * Insertion of the microcatheter in left circumflex artery. * Lengthy complex case and assisted by our staff over here is Sho Coronado and Sayra Antonio. INDICATIONS: The patient has 99% narrowing of left circumflex artery and had ventricular tachycardia. DESCRIPTION OF PROCEDURE: The risks and benefits discussed with the family. Informed consent obtained. At this time, we put a 7-Ukrainian arterial line from right femoral artery and 7-Ukrainian arterial line was placed because the patient had bilateral iliofemoral stent and abdominal aortic stent. We put an XB 3.5 catheter, we were unable to engage it; the XB 3.4 we were able to engage it. We have given IV Angiomax. IV labetalol was given. IV nitroglycerin was given. We put a ChoICE wire and which was able to cross the lesion, unable to go distal to the lesion. We put a balloon to help us, but the wire did not go through. Subsequently, now we put a 2.0 balloon 1.5 balloon to assist to go distally to the lesion. It had crossed the lesion but does not go through all the way distally. I called Dr. Bui, he came, assisted. He also tried to get a wire to the distal lesion. He put a cross catheter also and the arc wire also had been placed but the wire was unable to go to distal artery. However, it had already crossed the lesion. There was no complication. The procedure had been terminated. The patient remained hemodynamically stable. No chest pain. No cardiac arrhythmia and reason of terminating the procedure was that the wire did not go all the way to distal lesion of the artery. However, it was able to cross the lesion all the time. At the end of the procedure, we also did a right iliofemoral artery angiography and arteriotomy. Angio-Seal also was done without any complication. CONCLUSION: * Prior to performing the procedure, the left circumflex artery in the mid region is narrowed 99%, extremely tortuous in the proximal mid region. Post lesion is also significant for tortuosity. * Postprocedure also 99% unable to go to the distal vessel more and I removed most likely because of the underlying extreme tortuosity associated with the calcification. PLAN OF ACTION: At this time, we have used fluoroscopy procedure at this time monitor renal function and monitor the potassium and then we will have to make a further decision. The patient remained hemodynamically stable. I am going to call the family and we will let them know. Travis Strickland MD MP/JIA/CHANI TID: [id number] RECEIPT: [id number] MTDD
[2024-06-07 06:17] LABS: Basophils # (auto) 0 10 ^3/uL (0-0.2); Basophils % (auto) 0.4 % (0.0-2.0); Eosinophils # (auto) 0.2 10 ^3/uL (0-0.8); Eosinophils % (auto) 2.3 % (0.0-7.0); Hematocrit 35.3 % (41.0-53.0); Hemoglobin 12.3 g/dL (13.5-17.5); Lymphocytes # (auto) 1.3 10 ^3/uL (0.4-5.4); Lymphocytes % (auto) 18.5 % (10.0-50.0); Mean Corpuscular Hemoglobin 31.5 pg (28.0-32.0); Mean Corpuscular Hgb Conc. 34.7 g/dL (32.0-36.0); Mean Corpuscular Volume 90.6 fL (80.0-100.0); Monocytes # (auto) 0.7 10 ^3/uL (0-1.3); Monocytes % (auto) 10.4 % (0.0-12.0); Neutrophils # (auto) 4.8 10 ^3/uL (1.6-8.6); Neutrophils % (auto) 68.4 % (37.0-80.0); Nucleated Red Blood Cells % 0.1 %; Platelet Count (auto) 240 10^3/uL (140-450); Red Cell Distribution Width 14.7 % (11.8-14.3)
[2024-06-07 06:31] LABS: Alanine Aminotransferase 12 U/L (7-40); Albumin 3.9 g/dL (3.2-4.8); Alkaline Phosphatase 88 U/L (46-116); Anion Gap 8 (5-15); Aspartate Aminotransferase 15 U/L (13-40); BUN/Creatinine Ratio 15.8 (10.0-20.0); Blood Urea Nitrogen 22 mg/dL (9-23); Calcium 9.4 mg/dL (8.7-10.4); Glucose 92 mg/dL (74-106); Magnesium 2.2 mg/dL (1.6-2.6); Total Protein 6.8 g/dL (5.7-8.2)
[2024-06-07 06:32] LABS: Bilirubin, Total 0.9 mg/dL (0.2-1.0)
[2024-06-07 06:33] LABS: Carbon Dioxide 31 mmol/L (20-31); Chloride 95 mmol/L (98-107); Potassium 3.4 mmol/L (3.5-5.1); Sodium 134 mmol/L (136-145)
[2024-06-07] MEDS: LABETALOL HCL 20 MG/4 ML VL IV PRN (08:40)
--- NOTE | 2024-06-07 09:23 | DVH ---
CHEST RADIOGRAPH Indication: chf Technique: Single frontal view of the chest was obtained COMPARISON: XY CHEST PORTABLE on DOS: 06/05/24 FINDINGS: Lines and Tubes: None Lungs: Left lower lobe airspace disease. Pleura: No effusion. No pneumothorax. Cardiomediastinal contours: Cardiomegaly Bones: Unremarkable IMPRESSION: Left lower lobe airspace disease.
[2024-06-07] MEDS: FUROSEMIDE 40 MG/4 ML VIAL IV SCH (10:52)
--- NOTE | 2024-06-07 13:01 | DVHPN2 ---
Reviewed: Care Plan, H&P, Labs, Medications, Previous Orders, Radiology Changes from previous H/P or p: No Changes Objective Vitals Vital Signs Date Time Temp Pulse Resp B/P (MAP) Pulse Ox O2 Delivery O2 Flow Rate FiO2 06/07/24 12:05 82 152/86 06/07/24 10:45 20 06/07/24 09:00 98.1 94 98.1 06/06/24 20:00 Nasal Cannula* 2 28 Intake/Output Intake and Output 06/07/24 07:00 Intake Total 700 ml Output Total 1450 ml Balance -750 ml Intake Oral 700 ml Output Urine Total 1450 ml Medications Current Medications Medications Dose Ordered Sig/Whitney Route Start Time Stop Time Status Last Admin Dose Admin Aspirin 81 mg DAILY PO 06/06/24 10:00 06/07/24 10:52 81 MG Clopidogrel Bisulfate 75 mg DAILY PO 06/06/24 10:00 06/07/24 10:52 75 MG Nitroglycerin 0.4 mg Q5MINP PRN SL 06/05/24 18:15 Morphine Sulfate 2 mg Q30M PRN IV 06/05/24 18:15 06/07/24 02:28 2 MG Hydralazine HCl 10 mg Q8HPRN IV 06/05/24 22:00 06/07/24 05:17 10 MG Metoprolol Tartrate 25 mg BID PO 06/05/24 22:00 06/07/24 10:52 25 MG Ondansetron HCl 4 mg Q4HPRN PRN IV 06/05/24 19:00 Atorvastatin Calcium 80 mg HS PO 06/06/24 22:00 06/06/24 21:35 80 MG Furosemide 40 mg DAILY IV 06/07/24 10:00 06/07/24 10:52 40 MG Labetalol HCl 10 mg Q4HP PRN IV 06/06/24 10:30 06/07/24 08:40 10 MG Laboratory Results Laboratory Tests 06/07/24 05:05 Chemistry Test 06/07/24 05:05 Albumin 3.9 g/dL (3.2-4.8) Calcium Level 9.4 mg/dL (8.7-10.4) Magnesium Level 2.2 mg/dL (1.6-2.6) Total Protein 6.8 g/dL (5.7-8.2) LFT Test 06/07/24 05:05 Alanine Aminotransferase (ALT) 12 U/L (7-40) Alkaline Phosphatase 88 U/L (46-116) Aspartate Amino Transferase (AST) 15 U/L (13-40) Total Bilirubin 0.9 mg/dL (0.2-1.0) Microbiology Microbiology Date/Time Source Procedure Growth Status 06/05/24 20:30 Nose MRSA Screen - Final Complete Labs and/or images reviewed: Labs reviewed by me, Image(s) reviewed by me Assessment/Plan Assessment/Plan Covering For Dr. Mariano #1 acute resp failure s/p recent intubation #2 cad: Status post left heart catheterization by Dr. Maki Strickland #3 copd #4 acute on chronic systolic heart failure: lasix iv #5 htn #6 h/o AAA Plan discussed with: Patient Date of Service: Jun 07, 2024 Billing Provider: ANTONI CABRERA MD Common Visit Codes: [id number] INP/OBS CARE(HIGH) ANTONI CABRERA MD Jun 07, 2024 13:01
--- NOTE | 2024-06-07 15:11 | ECG ---
[facility] Test Date: 2024-06-07 Test Time: 02:38:57 Pat Name: GEORGI ALEMAN Department: Respiratoy Room: 0205T A Gender: M Soup Mixer: CLARE : 1955 Requested By: KRISTIN SIBLEY Order Number: [id number] Reading MD: Vernon Bui Measurements Intervals [place] Rate: 78 P: 52 MT: 166 QRS: -28 QRSD: 97 T: 113 QT: 395 QTc: 450 Interpretive Statements Pediatric ECG interpretation Sinus bradycardia Prolonged MT interval Probable LVH w/ secondary repol abnrm Electronically Signed On 06-08-2024 18:14:27 PDT by Vernon Bui Please click the below link to view image of tracing.
--- NOTE | 2024-06-07 22:22 | DVHPN2 ---
Progress Note - Dictate Date Seen: Jun 07, 2024 Medical Necessity Reason Pt with a Central, PICC or Fol: Yes The following are medically ne: Parker Catheter Reason for parker catheter: Strict I&O Subjective Patient was seen and evaluated in follow up. No overnight events. Patient is on 2 LPM NC. K 3.4, CL 95, ELASTIC TAPE INSERTER 1.39. Chest x-ray shows left lower lobe airspace disease. [place] [facility] [place], pending bed assignment. Telemetry reviewed. vital signs Vital Sign Date Time Temp Pulse Resp B/P (MAP) Pulse Ox O2 Delivery O2 Flow Rate FiO2 06/07/24 10:52 138/69 06/07/24 10:52 87 06/07/24 10:45 20 06/07/24 09:00 98.1 94 98.1 06/06/24 20:00 Nasal Cannula* 2 28 Total Intake and Output 06/06/24 06/06/24 06/07/24 15:00 23:00 07:00 Intake Total 250 ml 450 ml Output Total 750 ml 700 ml Balance -500 ml -250 ml medications Current Medications Medications Dose Ordered Sig/Whitney Route Start Time Stop Time Status Last Admin Dose Admin Aspirin 81 mg DAILY PO 06/06/24 10:00 06/07/24 10:52 81 MG Clopidogrel Bisulfate 75 mg DAILY PO 06/06/24 10:00 06/07/24 10:52 75 MG Nitroglycerin 0.4 mg Q5MINP PRN SL 06/05/24 18:15 Morphine Sulfate 2 mg Q30M PRN IV 06/05/24 18:15 06/07/24 02:28 2 MG Hydralazine HCl 10 mg Q8HPRN IV 06/05/24 22:00 06/07/24 05:17 10 MG Metoprolol Tartrate 25 mg BID PO 06/05/24 22:00 06/07/24 10:52 25 MG Ondansetron HCl 4 mg Q4HPRN PRN IV 06/05/24 19:00 Atorvastatin Calcium 80 mg HS PO 06/06/24 22:00 06/06/24 21:35 80 MG Furosemide 40 mg DAILY IV 06/07/24 10:00 06/07/24 10:52 40 MG Labetalol HCl 10 mg Q4HP PRN IV 06/06/24 10:30 06/07/24 08:40 10 MG objective GENERAL: Awake, alert, oriented. LUNGS: Clear. CARDIOVASCULAR: Heart sounds are good. ABDOMEN: Soft. laboratory and microbiology Laboratory Tests 06/07/24 05:05 Test 06/07/24 05:05 Range/Units Serum Glucose 92 74-106 mg/dL Problem List ACS. NSTEMI. Coronary artery disease with previous stents. Hypertension. End-stage dilated cardiomyopathy. Chronic diastolic heart failure. Abdominal aortic aneurysm with peripheral stents. Chronic obstructive pulmonary disease. Hypokalemia. Chronic kidney disease, stage 3. Acute respiratory failure, with recent intubation. Assessment/Plan Continued all current supportive medical care. Aspirin, Lipitor, Plavix, Metoprolol. Diuretics with Lasix. IV Hydralazine 10 mg Q 8 hours. IV Labetalol for SBP >150. Morphine for pain management. Nitro SL. Transfer to [facility]. Additional plan as per the hospital course. Plan discussed with: Patient KRISTIN SIBLEY MD Jun 07, 2024 11:38
== END 2024-06-07 16:42 | disposition short-term general hospital (02) | DRG 280 ==
LOC: CENTRAL 06-05 17:54 → TELE-CENTR 06-05 23:24
PROVIDERS: ADMIT Internal Medicine; ATTEND Internal Medicine
PROC: B210YZZ Fluoroscopy of Single Coronary Artery using Other Contrast (ICD-10-PCS; principal; 2024-06-06)
PROC: 04HY32Z Insertion of Monitoring Device into Lower Artery, Percutaneous Approach (ICD-10-PCS; 2024-06-06)
PROC: B41FYZZ Fluoroscopy of Right Lower Extremity Arteries using Other Contrast (ICD-10-PCS; 2024-06-06)
DX: I21.4 Non-ST elevation (NSTEMI) myocardial infarction (principal); I50.43 Acute on chronic combined systolic (congestive) and diastolic (congestive) heart failure; J96.00 Acute respiratory failure, unspecified whether with hypoxia or hypercapnia; I13.0 Hypertensive heart and chronic kidney disease with heart failure and stage 1 through stage 4 chronic kidney disease, or unspecified chronic kidney disease; I42.0 Dilated cardiomyopathy; I47.20 Ventricular tachycardia, unspecified; I25.10 Atherosclerotic heart disease of native coronary artery without angina pectoris; E87.6 Hypokalemia; I70.0 Atherosclerosis of aorta; I71.40 Abdominal aortic aneurysm, without rupture, unspecified; J44.9 Chronic obstructive pulmonary disease, unspecified; N18.30 Chronic kidney disease, stage 3 unspecified; I34.0 Nonrheumatic mitral (valve) insufficiency; Z79.82 Long term (current) use of aspirin; Z79.899 Other long term (current) drug therapy; Z95.5 Presence of coronary angioplasty implant and graft; Z79.84 Long term (current) use of oral hypoglycemic drugs
CPT/HCPCS: 36415; 71045; 75710; 80048; 80053; 83735; 84132; 85025; 85610; 85730; 86850; 86900; 86901; 87081; 93005; 93454; 99152; A4565; G0378; J2003; J2250; Q9967

== ENCOUNTER 2024-06-12 10:20 | Inpatient (IN) | payer OTHER, MEDICAID ==
[~2024-06-12] VITALS: Ht 188 cm; Wt 85.7 kg
[2024-06-12 15:04] VITALS: O2SAT 92
[2024-06-12 17:00] VITALS: BP 139/73; PULSE 99; RESP 16; TEMP 102.2; O2SAT 92
[2024-06-12] MEDS ORDERED: HYDROcodone-ACET 5/325MG TAB PO PRN (18:00)
[2024-06-12] MEDS ORDERED: ONDANSETRON HCL 4 MG/2 ML VIAL IV PRN (18:00)
[2024-06-12] MEDS ORDERED: POLYETHYLENE GLYCOL 17 GM PWDR PO PRN (18:00)
[2024-06-12] MEDS ORDERED: IPRATROPIUM BROM 0.5 MG/2.5ML INH SOL NEB PRN (18:00)
[2024-06-12] MEDS ORDERED: NITROGLYCERIN 0.4 MG SL TAB SL PRN (18:00)
[2024-06-12] MEDS ORDERED: ALBUTEROL SULF 2.5 MG/0.5ML(0.5%) NEB SOLN NEB PRN (18:00)
[2024-06-12] MEDS ORDERED: MORPHINE SULFATE INJ 2 MG/ml SYRG IV PRN (18:00)
[2024-06-12] MEDS ORDERED: OXYCODONE W/ ACETAMINOPHEN 5/325MG TABLET PO PRN (18:00)
--- NOTE | 2024-06-12 18:20 | DVHHP2 ---
History of Present Illness Reason for Visit: NSTEMI History of Present Illness Kailash Childress is a 68-year-old male with a past medical history of CAD, COPD, hypertension, diabetes, chronic kidney disease, cardiac stents, CHF, colon cancer, and previous AAA repair. Patient was initially transferred from [facility] by Dr. Rigo Strickland for a left heart cath. Dr. Strickland was not able to stent the RCA, and patient was sent to [facility] [place] for high risk PCI. On 06/10/2024 Patient went for PCI and had stent placed to RCA. He was transferred back today. Cardiovascular: CAD, HTN, Other (PTCA, AAA repair) Pulmonary: COPD Heme/Onc: Cancer (colon) Renal/: Chronic renal insuff Past Surgical History: Other (Ostomy and reversal, PTCA, AAA repair) Smoke: <1 pack per day ALCOHOL: none Drugs: None Lives: with Family Domestic Violence: Neg Review of Systems Constitutional: No: Fever, Chills, Sweats, Weakness, Malaise, Other Eyes: No: Pain, Vision change, Conjunctivae inflammation, Eyelid inflammation, Other, Redness ENT: No: Ear pain, Ear discharge, Nose pain, Nose discharge, Nose congestion, Mouth pain, Mouth swelling, Throat pain, Throat swelling, Other Respiratory: No: Cough, Dry, Shortness of breath, SOB with excertion, Wheezing, Hemoptysis, Pleuritic Pain, Sputum, Wheezing, Other Cardiovascular: Chest Pain; No: Palpitations, Orthopnea, Paroxysmal Noc. Dyspnea, Edema, Lt Headedness, Other Gastrointestinal: No: Nausea, Vomiting, Abdominal Pain, Diarrhea, Constipation, Melena, Hematochezia, Other Genitourinary: No Dysuria, No Frequency, No Incontinence, No Hematuria, No Retention, No Other Musculoskeletal: No: other, neck pain, shoulder pain, arm pain, back pain, hand pain, leg pain, foot pain Skin: No: Rash, Lesions, Jaundice, Bruising, Other Neurological: No: Weakness, Numbness, Incoordination, Change in speech, Confusion, Seizures, Other Allergies: Coded Allergies: NO KNOWN ALLERGIES (Unverified , 06/04/22) Medications Current Medications Medications Dose Ordered Sig/Whitney Route Start Time Stop Time Status Last Admin Dose Admin Sodium Chloride 10 ml Q8HR IV 06/12/24 22:00 UNV Acetaminophen/ Hydrocodone Bitart 1 tab Q4HP PRN PO 06/12/24 18:00 UNV Acetaminophen 650 mg Q6HP PRN PO 06/12/24 18:00 UNV Nitroglycerin 0.4 mg Q5MINP PRN SL 06/12/24 18:00 UNV Morphine Sulfate 2 mg Q30M PRN IV 06/12/24 18:00 UNV Aspirin 81 mg DAILY PO 06/13/24 10:00 UNV Exam Vital Signs Vital Signs Date Time Temp Pulse Resp B/P (MAP) Pulse Ox O2 Delivery O2 Flow Rate FiO2 06/12/24 17:00 102.2 99 16 139/73 (95) 92 102.2 06/12/24 15:04 Nasal Cannula* 2 28 General Appearance: Alert, Oriented X3, Cooperative, mild distress HEENT: Atraumatic, PERRLA Respiratory: Clear to auscultation, Normal air movement Cardiovascular: Normal S1, Normal S2 Abdominal: Normal bowel sounds, Soft, No tenderness Extremities: No clubbing, No cyanosis, No edema, Normal pulses Skin: No rashes, No breakdown, No significant lesion Neuro: Normal gait, Normal speech, Strength at 5/5 X4 ext Psych/Mental Status: Mental status NL, Mood NL Labs/Xrays Labs ordered and pending Assessment/Plan Assessment/Plan Assessment: ACS. NSTEMI. CAD with stents. HTN. End-stage dilated cardiomyopathy. S/P PTCA with stent to RCA, Plan Admit to Tele, Cardiology consult, Aspirin, Plavix, Coreg, Additional plan as per the hospital course. Medications reviewed, Labs ordered, Plan discussed with: Patient My Orders Orders - MARIA ANDRES Procedure Category Date Status Time Mrsa Screen LAINEY 06/12/24 Uncollected 16:54 Admit ADMIT 06/12/24 Transmitted 17:49 Code Status CODE 06/12/24 Transmitted 17:49 Sodium Chloride Lock PHA 06/12/24 Logged (Saline Lock Ns) 22:00 Hydrocodone-Acet PHA 06/12/24 Logged 5/325mg Tab ([place] 18:00 Complete Blood Count LAB 06/13/24 Verified 04:00 Comprehensive LAB 06/13/24 Verified Metabolic Panel 04:00 Cardiac DIET 06/12/24 Transmitted Diet-2gna,Lofat,Lochol Dinner Condition: Serious IRMA 06/12/24 In Process 17:49 Acetaminophen Tablet PHA 06/12/24 Logged (Tylenol Tablet) 18:00 Nitroglycerin PHA 06/12/24 Logged Sublingual (Ntrostat 18:00 Morphine Sulfate PHA 06/12/24 Logged Injection 18:00 Stat Ekg For Chest IRMA 06/12/24 In Process Pain 17:49 Notify Of Changes IRMA 06/12/24 In Process From Base 17:49 Client Service Coordinator For IRMA 06/12/24 In Process 24 Hours 17:49 Emergency Dysrhythmia IRMA 06/12/24 In Process Protocol 17:49 Rhythm Strips Once IRMA 06/12/24 In Process Every Shift 17:49 Oxygen By Nasal RT 06/12/24 Transmitted Cannula 17:49 Aspirin Tablet PHA 06/13/24 Logged 10:00 Aspirin Tablet PHA 06/12/24 Transmitted 18:00 Clopidogrel Bisulfate PHA 06/13/24 Transmitted (Plavix) 10:00 Albuterol Medneb PHA 06/12/24 Transmitted (Ventolin Medneb) 18:00 Ipratropium Medneb PHA 06/12/24 Transmitted (Atrovent Medneb) 18:00 Amlodipine Tablet PHA 06/13/24 Transmitted (Norvasc Tablet) 10:00 Atorvastatin (Lipitor) PHA 06/12/24 Transmitted 22:00 Carvedilol Tablet PHA 06/12/24 Transmitted (Coreg Tablet) 22:00 Furosemide Injection PHA 06/13/24 Transmitted (Lasix Injection) 10:00 Gabapentin Capsule PHA 06/12/24 Transmitted (Neurontin Capsule) 22:00 Melatonin (Melatonin) PHA 06/12/24 Transmitted 22:00 Polyethylene Glycol PHA 06/12/24 Transmitted 17g Powder (Miralax 18:00 Oxycodone W/ Acet PHA 06/12/24 Transmitted 5/325mg Tab (Percocet 18:00 Tamsulosin PHA 06/12/24 Transmitted Hydrochloride (Flomax) 18:00 Ondansetron Hcl PHA 06/12/24 Transmitted (Zofran) 18:00 Complete Blood Count LAB 06/12/24 Logged 17:49 Comprehensive LAB 06/12/24 Logged Metabolic Panel 17:49 Date of Service: Jun 12, 2024 Billing Provider: MARIA ANDRES TELEPHONE SALES AGENT Common Visit Codes: [id number] INP/OBS CARE (MOD) MARIA ANDRES [facility] Jun 12, 2024 18:20
[2024-06-12] MEDS: ACETAMINOPHEN 325 MG TAB PO PRN (18:27)
[2024-06-12] MEDS: ASPirin 81 mg TAB PO ONE (18:28)
[2024-06-12] MEDS: TAMSULOSIN HYDROCHLORIDE 0.4 MG CAP PO SCH (18:28)
[2024-06-12 18:46] LABS: Basophils # (auto) 0 10 ^3/uL (0-0.2); Basophils % (auto) 0.1 % (0.0-2.0); Eosinophils # (auto) 0 10 ^3/uL (0-0.8); Eosinophils % (auto) 0.1 % (0.0-7.0); Hematocrit 33.8 % (41.0-53.0); Hemoglobin 11.5 g/dL (13.5-17.5); Lymphocytes % (auto) 6.7 % (10.0-50.0); Mean Corpuscular Hemoglobin 30.1 pg (28.0-32.0); Mean Corpuscular Volume 88.6 fL (80.0-100.0); Monocytes # (auto) 1.2 10 ^3/uL (0-1.3); Monocytes % (auto) 8.5 % (0.0-12.0); Neutrophils # (auto) 12.2 10 ^3/uL (1.6-8.6); Neutrophils % (auto) 84.6 % (37.0-80.0); Platelet Count (auto) 288 10^3/uL (140-450); Red Blood Cells 3.82 10^6/uL (4.5-5.90); Red Cell Distribution Width 14.4 % (11.8-14.3); White Blood Cell 14.4 10^3/uL (4.4-10.8)
[2024-06-12 19:15] LABS: Alanine Aminotransferase 18 U/L (7-40); Albumin 4.3 g/dL (3.2-4.8); Alkaline Phosphatase 94 U/L (46-116); Anion Gap 7 (5-15); Aspartate Aminotransferase 23 U/L (13-40); BUN/Creatinine Ratio 11.4 (10.0-20.0); Bilirubin, Total 0.8 mg/dL (0.2-1.0); Calcium 9.4 mg/dL (8.7-10.4); Carbon Dioxide 30 mmol/L (20-31); Total Protein 7.7 g/dL (5.7-8.2)
[2024-06-12 19:18] LABS: Blood Urea Nitrogen 24 mg/dL (9-23); Chloride 96 mmol/L (98-107); Glucose 108 mg/dL (74-106); Sodium 133 mmol/L (136-145)
[2024-06-12 19:33] VITALS: BP 139/79; PULSE 99; RESP 18; O2SAT 92
[2024-06-12 20:00] VITALS: PULSE 91; PULSE 97; RESP 18; O2SAT 95
--- NOTE | 2024-06-12 20:13 | DVHINCON2 ---
Date of service: Jun 12, 2024 Referring Physician Vel Reason for Consultation NSTEMI History of Present Illness This is a 68-year-old male with a past medical history of CAD, COPD, hypertension, diabetes, chronic kidney disease, cardiac stents, CHF, colon cancer, and previous AAA repair. Patient was initially transferred from [facility] to [facility] to undergo a left heart cath. Patient went for stenting of the RCA while he was at [facility] however I was unable to stent the RCA safely and [place] [facility] [place] Donovan Roy to undergo a high risk PCI. On Monday06/10/2024 the patient underwent PCI and had stent placed to RCA. Patient was transferred back to [facility] today. Family History: Patient reports no known family medical history. Allergies: Coded Allergies: NO KNOWN ALLERGIES (Unverified , 06/04/22) Home Meds Reported Medications Patients Own Medication (PATIENTS OWN MEDICATION) ., 1 TAB PO BID PTS OWN MED-OBTAIN FROM PT AND SEND TO RX DRUG: FREQ: RX# EXP: DATE DISP: TECH: RP: 06/06/22 Aspirin (Aspir-Low) 81 Mg Tab, 81 MG PO DAILY for 30 Days, MG 06/06/22 Current Medications Current Medications Medications (Trade) Dose Ordered Sig/Whitney Route PRN Reason Start Time Stop Time Status Last Admin Sodium Chloride (Saline Lock Ns) 10 ml Q8HR IV 06/12/24 22:00 Acetaminophen/ Hydrocodone Bitart ([place] 5/325MG Tab) 1 tab Q4HP PRN PO MODERATE PAIN (4-6 PAIN SCALE) 06/12/24 18:00 Acetaminophen (Tylenol Tablet) 650 mg Q6HP PRN PO PAIN SCALE 1-3 OR TEMP>100.4 06/12/24 18:00 06/12/24 18:27 Nitroglycerin (Ntrostat Sublingual) 0.4 mg Q5MINP PRN SL FOR CHEST PAIN 06/12/24 18:00 Morphine Sulfate 2 mg Q30M PRN IV FOR CHEST PAIN 06/12/24 18:00 Aspirin 81 mg DAILY PO 06/13/24 10:00 Clopidogrel Bisulfate (Plavix) 75 mg DAILY PO 06/13/24 10:00 Albuterol (Ventolin Medneb) 2.5 mg Q6HPRN PRN NEB SHORTNESS OF BREATH 06/12/24 18:00 Ipratropium [place] (Atrovent Medneb) 0.5 mg Q6HPRN PRN NEB SHORTNESS OF BREATH 06/12/24 18:00 Amlodipine Besylate (Norvasc Tablet) 10 mg DAILY PO 06/13/24 10:00 Atorvastatin Calcium (Lipitor) 80 mg HS PO 06/12/24 22:00 Carvedilol (Coreg Tablet) 12.5 mg Q12HR PO 06/12/24 22:00 Furosemide (Lasix Injection) 20 mg DAILY IV 06/13/24 10:00 Gabapentin (Neurontin Capsule) 100 mg TID PO 06/12/24 22:00 Melatonin (Melatonin) 5 mg HS PO 06/12/24 22:00 Polyethylene Glycol (Miralax 17GM Powder) 17 gm DAILYPRN PRN PO FOR CONSTIPATION 06/12/24 18:00 Oxycodone/ Acetaminophen (Percocet 5/ 325MG Tablet) 1 tab Q6HP PRN PO MODERATE PAIN (4-6 PAIN SCALE) 06/12/24 18:00 06/12/24 18:13 DC Tamsulosin HCl (Flomax) 0.4 mg QPM PO 06/12/24 18:00 06/12/24 18:28 Ondansetron HCl (Zofran) 4 mg Q6HPRN PRN IV NAUSEA / VOMITING 06/12/24 18:00 Review of Systems Constitutional: No: Fever, Chills, Sweats, Weakness, Malaise, Other Eyes: No: Pain, Vision change, Conjunctivae inflammation, Eyelid inflammation, Other, Redness ENT: No: Ear pain, Ear discharge, Nose pain, Nose discharge, Nose congestion, Mouth pain, Mouth swelling, Throat pain, Throat swelling, Other Respiratory: No: Cough, Dry, Shortness of breath, SOB with excertion, Wheezing, Hemoptysis, Pleuritic Pain, Sputum, Wheezing, Other Cardiovascular: Chest Pain; No: Palpitations, Orthopnea, Paroxysmal Noc. D yspnea, Edema, Lt Headedness, Other Gastrointestinal: No: Nausea, Vomiting, Abdominal Pain, Diarrhea, Constipation, Melena, Hematochezia, Other Genitourinary: No Dysuria, No Frequency, No Incontinence, No Hematuria, No Retention, No Other Musculoskeletal: No: other, neck pain, shoulder pain, arm pain, back pain, hand pain, leg pain, foot pain Skin: No: Rash, Lesions, Jaundice, Bruising, Other Neurological: No: Weakness, Numbness, Incoordination, Change in speech, Confusion, Seizures, Other Vital Signs Vital Signs Date Time Temp Pulse Resp B/P (MAP) Pulse Ox O2 Delivery O2 Flow Rate FiO2 06/12/24 18:27 102.2 06/12/24 17:00 99 16 139/73 (95) 92 06/12/24 15:04 Nasal Cannula* 2 28 Physical Exam GENERAL: Awake, alert, oriented. LUNGS: Clear. CARDIOVASCULAR: Heart sounds are good. ABDOMEN: Soft. Labs/Diagnostic Data Labs Test 06/12/24 18:19 Range/Units Assessment ACS. NSTEMI. CAD with stents. HTN. End-stage dilated cardiomyopathy. S/P PTCA with stent to RCA. Plan/Recommendation I agree with your ongoing assessment and care of plan. Telemetry reviewed. Morphine and [place] for pain management. Amlodipine. Aspirin, Lipitor, Plavix. Coreg. Diuretics with Lasix. Additional plan as per the hospital course. A total of 45 minutes was spent reviewing the patient record, examining the patient, making a diagnostic and therapeutic plan, discussing this plan with medical personnel, following up on diagnostic studies and following the patient for clinical stability excluding any and all procedures. At least 50% of this time was spent in direct, [id number] contact. Plan discussed with: Patient KRISTIN SIBLEY MD Jun 12, 2024 19:08
[2024-06-12 21:00] VITALS: BP 95/62; PULSE 91; RESP 18; TEMP 98.1; O2SAT 97
[2024-06-12] MEDS: CARVEDILOL 12.5 MG TAB PO SCH (22:00)
[2024-06-12] MEDS: MELATONIN 5 MG TAB PO SCH (22:00)
[2024-06-12] MEDS: GABAPENTIN 100 MG CAP PO SCH (23:30)
[2024-06-12] MEDS: ATORVASTATIN 20 MG TAB PO SCH (23:30)
[2024-06-12] MEDS: SODIUM CHLOR 0.9% PF (SALINE LOCK) 10ML VIAL/SYR IV SCH (23:31)
[2024-06-13] VITALS (10 sets, daily range): BP systolic 114–155; BP diastolic 50–91; PULSE 87–93; RESP 16–19; TEMP 98.6–101.4; O2SAT 90–96
[2024-06-13 07:08] LABS: Basophils # (auto) 0 10 ^3/uL (0-0.2); Basophils % (auto) 0.2 % (0.0-2.0); Eosinophils # (auto) 0 10 ^3/uL (0-0.8); Eosinophils % (auto) 0.3 % (0.0-7.0); Hematocrit 33.3 % (41.0-53.0); Hemoglobin 11.4 g/dL (13.5-17.5); Lymphocytes # (auto) 0.9 10 ^3/uL (0.4-5.4); Lymphocytes % (auto) 5.9 % (10.0-50.0); Mean Corpuscular Hemoglobin 30.4 pg (28.0-32.0); Mean Corpuscular Hgb Conc. 34.1 g/dL (32.0-36.0); Mean Corpuscular Volume 89.2 fL (80.0-100.0); Monocytes # (auto) 1.3 10 ^3/uL (0-1.3); Monocytes % (auto) 8.6 % (0.0-12.0); Platelet Count (auto) 292 10^3/uL (140-450); Red Blood Cells 3.73 10^6/uL (4.5-5.90); Red Cell Distribution Width 14.4 % (11.8-14.3); White Blood Cell 15.2 10^3/uL (4.4-10.8)
[2024-06-13 07:21] LABS: Alanine Aminotransferase 16 U/L (7-40); Albumin 4.1 g/dL (3.2-4.8); Alkaline Phosphatase 93 U/L (46-116); Anion Gap 7 (5-15); Aspartate Aminotransferase 20 U/L (13-40); BUN/Creatinine Ratio 11.3 (10.0-20.0); Bilirubin, Total 0.7 mg/dL (0.2-1.0); Calcium 9.2 mg/dL (8.7-10.4); Carbon Dioxide 30 mmol/L (20-31); Potassium 4.1 mmol/L (3.5-5.1); Total Protein 7.5 g/dL (5.7-8.2)
[2024-06-13 07:25] LABS: Blood Urea Nitrogen 25 mg/dL (9-23); Chloride 95 mmol/L (98-107); Glucose 115 mg/dL (74-106); Sodium 132 mmol/L (136-145)
[2024-06-13] MEDS: FUROSEMIDE 20 MG/2 ML VIAL IV SCH (09:21)
[2024-06-13] MEDS: amLODIPine BESYLATE 5 MG TAB PO SCH (09:22)
[2024-06-13] MEDS: ASPirin 81 mg TAB PO SCH (09:23)
[2024-06-13] MEDS: CLOPIDOGREL BISULFATE 75 MG TAB PO SCH (09:24)
--- NOTE | 2024-06-13 10:12 | DVHPN2 ---
Progress Note Date Seen: Jun 13, 2024 Medical Necessity Reason Pt with a Central, PICC or Fol: No Subjective Patient reports: No new complaints Review of Systems: HEENT:Normal, CVS:Normal, RESPIRATORY:Normal, GI:Normal, :Normal, MSK:Normal, NEURO:Normal Objective vital signs Vital Sign Date Time Temp Pulse Resp B/P (MAP) Pulse Ox O2 Delivery O2 Flow Rate FiO2 06/13/24 09:24 94 135/77 06/13/24 08:30 99.7 16 94 99.7 06/12/24 20:00 Nasal Cannula* 2 28 Total Intake and Output 06/12/24 06/12/24 06/13/24 15:00 23:00 07:00 Intake Total 0 ml 900 ml Output Total 350 ml Balance 0 ml 550 ml medications Current Medications Medications Dose Ordered Sig/Whitney Route Start Time Stop Time Status Last Admin Dose Admin Sodium Chloride 10 ml Q8HR IV 06/12/24 22:00 06/13/24 06:14 10 ML Acetaminophen/ Hydrocodone Bitart 1 tab Q4HP PRN PO 06/12/24 18:00 Acetaminophen 650 mg Q6HP PRN PO 06/12/24 18:00 06/12/24 18:27 650 MG Nitroglycerin 0.4 mg Q5MINP PRN SL 06/12/24 18:00 Morphine Sulfate 2 mg Q30M PRN IV 06/12/24 18:00 Aspirin 81 mg DAILY PO 06/13/24 10:00 06/13/24 09:23 81 MG Clopidogrel Bisulfate 75 mg DAILY PO 06/13/24 10:00 06/13/24 09:24 75 MG Albuterol 2.5 mg Q6HPRN PRN NEB 06/12/24 18:00 Ipratropium [place] 0.5 mg Q6HPRN PRN NEB 06/12/24 18:00 Amlodipine Besylate 10 mg DAILY PO 06/13/24 10:00 06/13/24 09:22 10 MG Atorvastatin Calcium 80 mg HS PO 06/12/24 22:00 06/12/24 23:30 80 MG Carvedilol 12.5 mg Q12HR PO 06/12/24 22:00 06/13/24 09:24 12.5 MG Furosemide 20 mg DAILY IV 06/13/24 10:00 06/13/24 09:21 20 MG Gabapentin 100 mg TID PO 06/12/24 22:00 06/13/24 06:11 100 MG Melatonin 5 mg HS PO 06/12/24 22:00 Polyethylene Glycol 17 gm DAILYPRN PRN PO 06/12/24 18:00 Tamsulosin HCl 0.4 mg QPM PO 06/12/24 18:00 06/12/24 18:28 0.4 MG Ondansetron HCl 4 mg Q6HPRN PRN IV 06/12/24 18:00 Examination: GENERAL:Normal, HEENT:Normal, NECK:Normal, LUNGS:Normal, CVS:Normal, ABDOMEN:Normal, MSK:Normal, SKIN:Normal, NEURO:Normal, :Normal laboratory and microbiology Laboratory Tests 06/13/24 06:34 Test 06/13/24 06:34 Range/Units Serum Glucose 115 H 74-106 mg/dL Problem List/Assessment/Plan Problem List/Assessment/Plan * Coronary artery disease with previous stents S/P intervention at [facility] for stent placement * Chronic diastolic heart failure. * Abdominal aortic aneurysm with peripheral stents. * Hypertension. * Chronic obstructive pulmonary disease. * acute on Chronic kidney disease, stage 3 ?vasomotor nephropathy: ivf * s/p recent intubation * h/o ostomy/reversal * sepsis ?pneumonia: cultures, iv zosyn, chest xray advance care planning- full code- time spent 19 mins Plan discussed with: Patient My Orders My Orders Orders - KEYANNA AMIN MD Procedure Category Date Status Time Mrsa Screen LAINEY 06/12/24 In Process 18:45 * Wound Consult CONS 06/13/24 Transmitted 00:08 * Dietary Consult CONS 06/13/24 Transmitted 00:08 * Leadite Heater CONS 06/13/24 Transmitted Consult 04:20 Dietary Evaluation Review Comments: Offer Ensure HP PO BID supplements, accommondate his likes and dislike within his dietary regimen. Expected Outcomes/Goals: Improved skin score, prevent wounds and gradual wt gain. Date of Service: Jun 13, 2024 Billing Provider: KEYANNA AMIN MD Common Visit Codes: [id number] INP/OBS CARE(HIGH) Secondary Visit Codes: [id number] CARE PLAN 30 MINUTES KEYANNA AMIN MD Jun 13, 2024 10:12
[2024-06-13] MEDS: PIPERACILLIN-TAZOB 3.375GM 100 ML IV ONE (11:02)
[2024-06-13] MEDS: SODIUM CHLORIDE 0.9% 1,000 ML IV SCH (11:05)
--- NOTE | 2024-06-13 15:40 | DVH ---
CHEST RADIOGRAPH Indication: CHF Technique: Single frontal view of the chest was obtained COMPARISON: XY CHEST PORTABLE on DOS: 06/07/24, XY CHEST PORTABLE on DOS: 06/05/24 FINDINGS: Lines and Tubes: Left PICC in satisfactory position overlying the brachiocephalic vein. Lungs: Clear Pleura: No effusion. No pneumothorax. Cardiomediastinal contours: Cardiomegaly. Thoracic aorta stent in-situ. Bones: Unremarkable IMPRESSION: No acute disease.
[2024-06-13 17:09] LABS: Urine Bacteria FEW /hpf (None Seen); Urine Blood 1+ /uL (Negative); Urine Budding Yeast OCCASIONAL /hpf (None Seen); Urine Clarity Turbid (Clear); Urine Color Light-Yellow (Yellow); Urine Mucus FEW (None Seen); Urine Protein, UAD 1+ (Negative); Urine Specific Gravity 1.009 (1.001-1.035); Urine Squamous Epithelial Cell FEW /hpf (<5); Urine Urobilinogen Normal (Negative); Urine WBC 115 /HPF (0-3); Urine pH 6.5 (5.0-9.0)
[2024-06-13] MEDS: PIPERACILLIN-TAZOB 3.375GM 100 ML IV SCH (21:06)
--- NOTE | 2024-06-13 23:34 | DVHPN2 ---
Progress Note - Dictate Date Seen: Jun 13, 2024 Medical Necessity Reason Pt with a Central, PICC or Fol: No Subjective Patient was seen and evaluated in follow up. Patient is complaining of generalized pain. WBC 15.2, HCT 33.3, BUN 25, CINDER PIT CRANE OPERATOR 2.21. Telemetry reviewed. vital signs Vital Sign Date Time Temp Pulse Resp B/P (MAP) Pulse Ox O2 Delivery O2 Flow Rate FiO2 06/13/24 09:24 99.4 99.4 06/13/24 09:24 94 135/77 06/13/24 08:30 16 94 06/13/24 08:12 Room Air* 0 21 Total Intake and Output 06/12/24 06/12/24 06/13/24 15:00 23:00 07:00 Intake Total 0 ml 900 ml Output Total 350 ml Balance 0 ml 550 ml medications Current Medications Medications Dose Ordered Sig/Whitney Route Start Time Stop Time Status Last Admin Dose Admin Sodium Chloride 10 ml Q8HR IV 06/12/24 22:00 06/13/24 06:14 10 ML Acetaminophen/ Hydrocodone Bitart 1 tab Q4HP PRN PO 06/12/24 18:00 Acetaminophen 650 mg Q6HP PRN PO 06/12/24 18:00 06/12/24 18:27 650 MG Nitroglycerin 0.4 mg Q5MINP PRN SL 06/12/24 18:00 Morphine Sulfate 2 mg Q30M PRN IV 06/12/24 18:00 Aspirin 81 mg DAILY PO 06/13/24 10:00 06/13/24 09:23 81 MG Clopidogrel Bisulfate 75 mg DAILY PO 06/13/24 10:00 06/13/24 09:24 75 MG Albuterol 2.5 mg Q6HPRN PRN NEB 06/12/24 18:00 Ipratropium [place] 0.5 mg Q6HPRN PRN NEB 06/12/24 18:00 Amlodipine Besylate 10 mg DAILY PO 06/13/24 10:00 06/13/24 09:22 10 MG Atorvastatin Calcium 80 mg HS PO 06/12/24 22:00 06/12/24 23:30 80 MG Carvedilol 12.5 mg Q12HR PO 06/12/24 22:00 06/13/24 09:24 12.5 MG Melatonin 5 mg HS PO 06/12/24 22:00 Polyethylene Glycol 17 gm DAILYPRN PRN PO 06/12/24 18:00 Tamsulosin HCl 0.4 mg QPM PO 06/12/24 18:00 06/12/24 18:28 0.4 MG Ondansetron HCl 4 mg Q6HPRN PRN IV 06/12/24 18:00 Piperacillin Sod/ Tazobactam Sod 100 ml @ 25 mls/hr Q12HR IV 06/13/24 22:00 Sodium Chloride 1,000 ml @ 60 mls/hr [id number] IV 06/13/24 10:15 06/13/24 11:05 60 MLS/HR objective GENERAL: Awake, alert, oriented. LUNGS: Clear. CARDIOVASCULAR: Heart sounds are good. ABDOMEN: Soft. laboratory and microbiology Laboratory Tests 06/13/24 06:34 Test 06/13/24 06:34 Range/Units Serum Glucose 115 H 74-106 mg/dL Problem List ACS. NSTEMI. CAD with stents. HTN. End-stage dilated cardiomyopathy. S/P PTCA with stent to RCA. Assessment/Plan Continued all current supportive medical care. Morphine and [place] for pain management. Amlodipine. Aspirin, Lipitor, Plavix. Coreg. Diuretics with Lasix. Additional plan as per the hospital course. Dietary Evaluation Review Comments: Offer Ensure HP PO BID supplements, accommondate his likes and dislike within his dietary regimen. Expected Outcomes/Goals: Improved skin score, prevent wounds and gradual wt gain. Plan discussed with: Patient KRISTIN SIBLEY MD Jun 13, 2024 12:29
[2024-06-14] VITALS (10 sets, daily range): BP systolic 124–147; BP diastolic 70–91; PULSE 76–89; RESP 18; TEMP 36.6; O2SAT 90–96
--- NOTE | 2024-06-14 11:09 | DVHPN2 ---
Subjective The patient is seen and examined at bedside. The patient had refused physical therapy. Reviewed: Care Plan, H&P, Labs, Medications, Previous Orders, Radiology Changes from previous H/P or p: No Changes Eyes: No Pain, No Vision change, No Conjunctivae inflammation, No Eyelid inflammation, No Other, No Redness ENT: No Ear pain, No Ear discharge, No Nose pain, No Nose discharge, No Nose congestion, No Mouth pain, No Mouth swelling, No Throat pain, No Throat swelling, No Other Cardiovascular: Chest Pain; No Palpitations, No Orthopnea, No Paroxysmal Noc. Dyspnea, No Edema, No Lt Headedness, No Other Respiratory: No Cough, No Dry, No Shortness of breath, No SOB with excertion, No Wheezing, No Hemoptysis, No Pleuritic Pain, No Sputum, No Other Gastrointestinal: No Nausea, No Vomiting, No Abdominal Pain, No Diarrhea, No Constipation, No Melena, No Hematochezia, No Other Genitourinary: No Dysuria, No Frequency, No Incontinence, No Hematuria, No Retention, No Other Musculoskeletal: No other, No neck pain, No shoulder pain, No arm pain, No back pain, No hand pain, No leg pain, No foot pain Skin: No Rash, No Lesions, No Jaundice, No Bruising, No Other Objective Vitals Vital Signs Date Time Temp Pulse Resp B/P (MAP) Pulse Ox O2 Delivery O2 Flow Rate FiO2 06/14/24 09:39 76 124/70 06/14/24 09:23 96 Room Air* 0 21 06/14/24 08:10 98.3 18 98.3 Intake/Output Intake and Output 06/14/24 07:00 Intake Total 1200 ml Output Total 1200 ml Balance 0 ml Intake Oral 1100 ml IV Total 100 ml Output Urine Total 1200 ml # Bowel Movements 1 General Appearance: Alert, Oriented X3, Cooperative, No acute distress HEENT: Atraumatic, PERRLA, EOMI, Mucous membr. moist/pink Neck: Supple Lungs: Clear to auscultation, Normal air movement Cardiovascular: Regular rate, Normal S1, Normal S2, No murmurs, Gallops, Rubs Abdomen: Normal bowel sounds, Soft, No tenderness Neuro: Cranial nerves 3-12 NL Psych/Mental Status: Mental status NL Medications Current Medications Medications Dose Ordered Sig/Whitney Route Start Time Stop Time Status Last Admin Dose Admin Sodium Chloride 10 ml Q8HR IV 06/12/24 22:00 06/14/24 05:51 10 ML Acetaminophen/ Hydrocodone Bitart 1 tab Q4HP PRN PO 06/12/24 18:00 Acetaminophen 650 mg Q6HP PRN PO 06/12/24 18:00 06/12/24 18:27 650 MG Nitroglycerin 0.4 mg Q5MINP PRN SL 06/12/24 18:00 Morphine Sulfate 2 mg Q30M PRN IV 06/12/24 18:00 Aspirin 81 mg DAILY PO 06/13/24 10:00 06/14/24 09:39 81 MG Clopidogrel Bisulfate 75 mg DAILY PO 06/13/24 10:00 06/14/24 09:38 75 MG Albuterol 2.5 mg Q6HPRN PRN NEB 06/12/24 18:00 Ipratropium [place] 0.5 mg Q6HPRN PRN NEB 06/12/24 18:00 Amlodipine Besylate 10 mg DAILY PO 06/13/24 10:00 06/14/24 09:38 10 MG Atorvastatin Calcium 80 mg HS PO 06/12/24 22:00 06/13/24 21:06 80 MG Carvedilol 12.5 mg Q12HR PO 06/12/24 22:00 06/14/24 09:39 12.5 MG Melatonin 5 mg HS PO 06/12/24 22:00 06/13/24 21:06 5 MG Polyethylene Glycol 17 gm DAILYPRN PRN PO 06/12/24 18:00 Tamsulosin HCl 0.4 mg QPM PO 06/12/24 18:00 06/13/24 17:14 0.4 MG Ondansetron HCl 4 mg Q6HPRN PRN IV 06/12/24 18:00 Piperacillin Sod/ Tazobactam Sod 100 ml @ 25 mls/hr Q12HR IV 06/13/24 22:00 06/14/24 09:37 25 MLS/HR Sodium Chloride 1,000 ml @ 60 mls/hr [id number] IV 06/13/24 10:15 06/13/24 11:05 60 MLS/HR Laboratory Results Laboratory Tests 06/13/24 06:34 Urinalysis Test 06/13/24 12:12 Urine Color Light-yellow (Yellow) Urine Clarity Turbid (Clear) H Urine pH 6.5 (5.0-9.0) Urine Specific [place] 1.009 (1.001-1.035) Urine Protein 1+ (Negative) H Urine Ketones Negative (Negative) Urine Blood 1+ /uL (Negative) H Urine Nitrite Negative (Negative) Urine Bilirubin Negative (Negative) Urine Urobilinogen Normal mg/dL (Negative) Urine Leukocyte Esterase 3+ /uL (Negative) Urine RBC 12 /hpf (0 - 3) Urine Microscopic WBC 115 /HPF (0-3) H Urine Squamous Epithelial Cells Few /hpf (<5) Urine Bacteria Few /hpf (None Seen) H Urine Mucus Few (None Seen) Urine Yeast (Budding) Occasional /hpf (None Urine Glucose Normal mg/dL (Normal) Microbiology Microbiology Date/Time Source Procedure Growth Status 06/13/24 12:12 Voided Urine Urine Culture - Preliminary Resulted 06/12/24 18:45 Nose MRSA Screen - Final Complete Labs and/or images reviewed: Labs reviewed by me Assessment/Plan Assessment/Plan * Coronary artery disease with previous stents S/P intervention at [facility] for stent placement * Chronic diastolic heart failure. * Abdominal aortic aneurysm with peripheral stents. * Hypertension. * Chronic obstructive pulmonary disease. * acute on Chronic kidney disease, stage 3 ?vasomotor nephropathy * s/p recent intubation * h/o ostomy/reversal * sepsis ?pneumonia Continuing current management. Advised the patient to have physical therapy to walk him to see if he qualify for front wheel walker at home. I informed the daughter who on the phone that I will discharge him today. The daughter is in agreement of taking her father home. Continuing with IV antibiotic. So far cultures negative. We will switch to oral Augmentin when patient DC We will get home health for home safety evaluation and for possible PT if patient let us evaluate for the need of physical therapy at home. Addendum: According to nursing staff, the patient's daughter did not show up to pick him up around 3:00 p.m.. She called and requests shelter home facility placement for now. She stated that she can not take care of him at home. restuarant crew worker was consulted and shelter home facility was initiated. This medical document was created using an electronic medical record system with M[employer] direct computerized dictation system. Although this document has been carefully reviewed, there may still be some phonetic and typographical errors. These areas are purely typographical due to imperfections of the software programs, and do not reflect any compromise in the patient's medical care. Plan discussed with: Patient Date of Service: Jun 14, 2024 Billing Provider: MANNY SUE MD Common Visit Codes: [id number] INP/OBS CARE(HIGH) MANNY SUE MD Jun 14, 2024 11:09
--- NOTE | 2024-06-14 12:01 | DVHDS2 ---
Discharge Summary Date of Admission Jun 12, 2024 at 14:47 Labs/Diagnostic Data: Laboratory Results Test 06/13/24 12:12 06/13/24 06:34 Urine Color Light-yellow (Yellow) Urine Clarity Turbid (Clear) Urine pH 6.5 (5.0-9.0) Urine Specific [place] 1.009 (1.001-1.035) Urine Protein 1+ (Negative) Urine Ketones Negative (Negative) Urine Blood 1+ /uL (Negative) Urine Nitrite Negative (Negative) Urine Bilirubin Negative (Negative) Urine Urobilinogen Normal mg/dL (Negative) Urine Leukocyte Esterase 3+ /uL (Negative) Urine RBC 12 /hpf (0 - 3) Urine Microscopic WBC 115 /HPF (0-3) Urine Squamous Epithelial Cells Few /hpf (<5) Urine Bacteria Few /hpf (None Seen) Urine Mucus Few (None Seen) Urine Yeast (Budding) Occasional /hpf (None Urine Glucose Normal mg/dL (Normal) White Blood Count 15.2 10^3/uL (4.4-10.8) Red Blood Count 3.73 10^6/uL (4.5-5.90) Hemoglobin 11.4 g/dL (13.5-17.5) Hematocrit 33.3 % (41.0-53.0) Mean Corpuscular Volume 89.2 fL (80.0-100.0) Mean Corpuscular Hemoglobin 30.4 pg (28.0-32.0) Mean Corpuscular Hemoglobin Concent 34.1 g/dL (32.0-36.0) Red Cell Distribution Width 14.4 % (11.8-14.3) Platelet Count 292 10^3/uL (140-450) Mean Platelet Volume 7.6 fL (6.9-10.8) Neutrophils (%) (Auto) 85.0 % (37.0-80.0) Lymphocytes (%) (Auto) 5.9 % (10.0-50.0) Monocytes (%) (Auto) 8.6 % (0.0-12.0) Eosinophils (%) (Auto) 0.3 % (0.0-7.0) Basophils (%) (Auto) 0.2 % (0.0-2.0) Neutrophils # (Auto) 13.0 10 ^3/uL (1.6-8.6) Lymphocytes # (Auto) 0.9 10 ^3/uL (0.4-5.4) Monocytes # (Auto) 1.3 10 ^3/uL (0-1.3) Eosinophils # (Auto) 0 10 ^3/uL (0-0.8) Basophils # (Auto) 0 10 ^3/uL (0-0.2) Nucleated Red Blood Cells 0.0 % Sodium Level 132 mmol/L (136-145) Potassium Level 4.1 mmol/L (3.5-5.1) Chloride Level 95 mmol/L (98-107) Carbon Dioxide Level 30 mmol/L (20-31) Anion Gap 7 (5-15) Blood Urea Nitrogen 25 mg/dL (9-23) Creatinine 2.21 mg/dL (0.700-1.30) Glomerular Filtration Rate Calc 32 mL/min (>90) BUN/Creatinine Ratio 11.3 (10.0-20.0) Serum Glucose 115 mg/dL (74-106) Calcium Level 9.2 mg/dL (8.7-10.4) Total Bilirubin 0.7 mg/dL (0.2-1.0) Aspartate Amino Transferase (AST) 20 U/L (13-40) Alanine Aminotransferase (ALT) 16 U/L (7-40) Alkaline Phosphatase 93 U/L (46-116) Total Protein 7.5 g/dL (5.7-8.2) Albumin 4.1 g/dL (3.2-4.8) Other Laboratory Tests 06/13/24 06:34 Discharge Statement: "Patient was advised to return to the ER or call 911 if any headaches, dizziness, shortness of breath, chest pain, abdominal pain, bleeding, fevers, or worsening of medical condition. Patient was counseled about treatment plan, medications, possible side effects, patientverbalized understanding. All questions were answered to the best of my ability. This discharge took greater then 30 minutes in planning, reviewing documentation, counseling the patient, and discussing with other team members." ASSESSMENT ASSESSMENT Assessment MANNY SUE MD Jun 14, 2024 12:01
[2024-06-14] MEDS ORDERED: AML5T PO (12:37)
[2024-06-14] MEDS ORDERED: CARV-216 PO (12:37)
[2024-06-14] MEDS ORDERED: ATOR-47 PO (12:37)
[2024-06-14] MEDS ORDERED: CLOP75TA70 PO (12:37)
[2024-06-14] MEDS ORDERED: AUG875T PO (12:38)
[2024-06-14 14:01] LABS: Basophils # (auto) 0 10 ^3/uL (0-0.2); Basophils % (auto) 0.4 % (0.0-2.0); Eosinophils # (auto) 0.2 10 ^3/uL (0-0.8); Eosinophils % (auto) 1.5 % (0.0-7.0); Hematocrit 35.2 % (41.0-53.0); Hemoglobin 11.5 g/dL (13.5-17.5); Lymphocytes # (auto) 1.2 10 ^3/uL (0.4-5.4); Lymphocytes % (auto) 10.4 % (10.0-50.0); Mean Corpuscular Hemoglobin 29.6 pg (28.0-32.0); Mean Corpuscular Hgb Conc. 32.6 g/dL (32.0-36.0); Mean Corpuscular Volume 90.6 fL (80.0-100.0); Monocytes # (auto) 0.8 10 ^3/uL (0-1.3); Monocytes % (auto) 6.4 % (0.0-12.0); Neutrophils # (auto) 9.7 10 ^3/uL (1.6-8.6); Neutrophils % (auto) 81.3 % (37.0-80.0); Platelet Count (auto) 299 10^3/uL (140-450); Red Blood Cells 3.88 10^6/uL (4.5-5.90); Red Cell Distribution Width 14.6 % (11.8-14.3); White Blood Cell 11.9 10^3/uL (4.4-10.8)
[2024-06-14 14:13] LABS: Anion Gap 9 (5-15); Calcium 9.3 mg/dL (8.7-10.4); Carbon Dioxide 30 mmol/L (20-31)
[2024-06-14 14:14] LABS: Chloride 96 mmol/L (98-107); Sodium 135 mmol/L (136-145)
[2024-06-14 14:18] LABS: BUN/Creatinine Ratio 11.4 (10.0-20.0); Glucose 98 mg/dL (74-106)
[2024-06-14 14:19] LABS: Blood Urea Nitrogen 27 mg/dL (9-23)
--- NOTE | 2024-06-14 15:21 | DVHPN2 ---
Progress Note - Dictate Date Seen: Jun 14, 2024 Medical Necessity Reason Pt with a Central, PICC or Fol: No Subjective Patient was seen and evaluated in follow up. Patient is complaining of generalized pain. Chest x-ray showed NAD. Pending insurance auth for Telemetry reviewed. vital signs Vital Sign Date Time Temp Pulse Resp B/P (MAP) Pulse Ox O2 Delivery O2 Flow Rate FiO2 06/14/24 09:39 76 124/70 06/14/24 09:23 96 Room Air* 0 21 06/14/24 08:10 98.3 18 98.3 Total Intake and Output 06/13/24 06/13/24 06/14/24 15:00 23:00 07:00 Intake Total 100 ml 300 ml 800 ml Output Total 700 ml 500 ml Balance 100 ml -400 ml 300 ml medications Current Medications Medications Dose Ordered Sig/Whitney Route Start Time Stop Time Status Last Admin Dose Admin Sodium Chloride 10 ml Q8HR IV 06/12/24 22:00 06/14/24 05:51 10 ML Acetaminophen/ Hydrocodone Bitart 1 tab Q4HP PRN PO 06/12/24 18:00 Acetaminophen 650 mg Q6HP PRN PO 06/12/24 18:00 06/12/24 18:27 650 MG Nitroglycerin 0.4 mg Q5MINP PRN SL 06/12/24 18:00 Morphine Sulfate 2 mg Q30M PRN IV 06/12/24 18:00 Aspirin 81 mg DAILY PO 06/13/24 10:00 06/14/24 09:39 81 MG Clopidogrel Bisulfate 75 mg DAILY PO 06/13/24 10:00 06/14/24 09:38 75 MG Albuterol 2.5 mg Q6HPRN PRN NEB 06/12/24 18:00 Ipratropium [place] 0.5 mg Q6HPRN PRN NEB 06/12/24 18:00 Amlodipine Besylate 10 mg DAILY PO 06/13/24 10:00 06/14/24 09:38 10 MG Atorvastatin Calcium 80 mg HS PO 06/12/24 22:00 06/13/24 21:06 80 MG Carvedilol 12.5 mg Q12HR PO 06/12/24 22:00 06/14/24 09:39 12.5 MG Melatonin 5 mg HS PO 06/12/24 22:00 06/13/24 21:06 5 MG Polyethylene Glycol 17 gm DAILYPRN PRN PO 06/12/24 18:00 Tamsulosin HCl 0.4 mg QPM PO 06/12/24 18:00 06/13/24 17:14 0.4 MG Ondansetron HCl 4 mg Q6HPRN PRN IV 06/12/24 18:00 Piperacillin Sod/ Tazobactam Sod 100 ml @ 25 mls/hr Q12HR IV 06/13/24 22:00 06/14/24 09:37 25 MLS/HR Sodium Chloride 1,000 ml @ 60 mls/hr [id number] IV 06/13/24 10:15 06/13/24 11:05 60 MLS/HR objective GENERAL: Awake, alert, oriented. LUNGS: Clear. CARDIOVASCULAR: Heart sounds are good. ABDOMEN: Soft. laboratory and microbiology Laboratory Tests 06/13/24 06:34 Test 06/13/24 06:34 Range/Units Serum Glucose 115 H 74-106 mg/dL Problem List ACS. NSTEMI. CAD with stents. HTN. End-stage dilated cardiomyopathy. S/P PTCA with stent to RCA. Assessment/Plan Continued all current supportive medical care. Morphine and [place] for pain management. Amlodipine. Aspirin, Lipitor, Plavix. Coreg. Diuretics with Lasix. Additional plan as per the hospital course. Dietary Evaluation Review Comments: Offer Ensure HP PO BID supplements, accommondate his likes and dislike within his dietary regimen. Expected Outcomes/Goals: Improved skin score, prevent wounds and gradual wt gain. Plan discussed with: Patient KRISTIN SIBLEY MD Jun 14, 2024 12:37
[2024-06-15] VITALS (8 sets, daily range): BP systolic 120–141; BP diastolic 64–84; PULSE 62–78; RESP 16–17; TEMP 98–98.6; O2SAT 90–97
--- NOTE | 2024-06-15 14:18 | DVHPN2 ---
Subjective The patient is seen and examined at bedside. The patient had refused physical therapy. Reviewed: Care Plan, H&P, Labs, Medications, Previous Orders, Radiology Eyes: No Pain, No Vision change, No Conjunctivae inflammation, No Eyelid inflammation, No Other, No Redness ENT: No Ear pain, No Ear discharge, No Nose pain, No Nose discharge, No Nose congestion, No Mouth pain, No Mouth swelling, No Throat pain, No Throat swelling, No Other Cardiovascular: Chest Pain; No Palpitations, No Orthopnea, No Paroxysmal Noc. Dyspnea, No Edema, No Lt Headedness, No Other Respiratory: No Cough, No Dry, No Shortness of breath, No SOB with excertion, No Wheezing, No Hemoptysis, No Pleuritic Pain, No Sputum, No Other Gastrointestinal: No Nausea, No Vomiting, No Abdominal Pain, No Diarrhea, No Constipation, No Melena, No Hematochezia, No Other Genitourinary: No Dysuria, No Frequency, No Incontinence, No Hematuria, No Retention, No Other Musculoskeletal: No other, No neck pain, No shoulder pain, No arm pain, No back pain, No hand pain, No leg pain, No foot pain Skin: No Rash, No Lesions, No Jaundice, No Bruising, No Other Objective Vitals Vital Signs Date Time Temp Pulse Resp B/P (MAP) Pulse Ox O2 Delivery O2 Flow Rate FiO2 06/15/24 12:45 98.0 78 17 120/81 (94) 92 98.0 06/15/24 11:47 Room Air 0.0 06/15/24 11:47 21 Intake/Output Intake and Output 06/15/24 07:00 Intake Total 1442 ml Output Total 1150 ml Balance 292 ml Intake Oral 1342 ml IV Total 100 ml Output Urine Total 1150 ml General Appearance: Alert, Oriented X3, Cooperative, No acute distress HEENT: Atraumatic, PERRLA, EOMI, Mucous membr. moist/pink Neck: Supple Lungs: Clear to auscultation, Normal air movement Cardiovascular: Regular rate, Normal S1, Normal S2, No murmurs, Gallops, Rubs Abdomen: Normal bowel sounds, Soft, No tenderness Neuro: Cranial nerves 3-12 NL Psych/Mental Status: Mental status NL Medications Current Medications Medications Dose Ordered Sig/Whitney Route Start Time Stop Time Status Last Admin Dose Admin Sodium Chloride 10 ml Q8HR IV 06/12/24 22:00 06/15/24 06:12 10 ML Acetaminophen/ Hydrocodone Bitart 1 tab Q4HP PRN PO 06/12/24 18:00 Acetaminophen 650 mg Q6HP PRN PO 06/12/24 18:00 06/12/24 18:27 650 MG Nitroglycerin 0.4 mg Q5MINP PRN SL 06/12/24 18:00 Morphine Sulfate 2 mg Q30M PRN IV 06/12/24 18:00 Aspirin 81 mg DAILY PO 06/13/24 10:00 06/15/24 10:21 81 MG Clopidogrel Bisulfate 75 mg DAILY PO 06/13/24 10:00 06/15/24 10:20 75 MG Albuterol 2.5 mg Q6HPRN PRN NEB 06/12/24 18:00 Ipratropium [place] 0.5 mg Q6HPRN PRN NEB 06/12/24 18:00 Amlodipine Besylate 10 mg DAILY PO 06/13/24 10:00 06/15/24 10:20 10 MG Atorvastatin Calcium 80 mg HS PO 06/12/24 22:00 06/14/24 21:04 80 MG Carvedilol 12.5 mg Q12HR PO 06/12/24 22:00 06/15/24 10:21 12.5 MG Melatonin 5 mg HS PO 06/12/24 22:00 06/14/24 21:04 5 MG Polyethylene Glycol 17 gm DAILYPRN PRN PO 06/12/24 18:00 Tamsulosin HCl 0.4 mg QPM PO 06/12/24 18:00 06/14/24 17:53 0.4 MG Ondansetron HCl 4 mg Q6HPRN PRN IV 06/12/24 18:00 Piperacillin Sod/ Tazobactam Sod 100 ml @ 25 mls/hr Q12HR IV 06/13/24 22:00 06/15/24 10:19 25 MLS/HR Sodium Chloride 1,000 ml @ 60 mls/hr [id number] IV 06/13/24 10:15 06/15/24 12:22 60 MLS/HR Laboratory Results Laboratory Tests 06/14/24 13:15 Urinalysis Test 06/13/24 12:12 Urine Color Light-yellow (Yellow) Urine Clarity Turbid (Clear) H Urine pH 6.5 (5.0-9.0) Urine Specific [place] 1.009 (1.001-1.035) Urine Protein 1+ (Negative) H Urine Ketones Negative (Negative) Urine Blood 1+ /uL (Negative) H Urine Nitrite Negative (Negative) Urine Bilirubin Negative (Negative) Urine Urobilinogen Normal mg/dL (Negative) Urine Leukocyte Esterase 3+ /uL (Negative) Urine RBC 12 /hpf (0 - 3) Urine Microscopic WBC 115 /HPF (0-3) H Urine Squamous Epithelial Cells Few /hpf (<5) Urine Bacteria Few /hpf (None Seen) H Urine Mucus Few (None Seen) Urine Yeast (Budding) Occasional /hpf (None Urine Glucose Normal mg/dL (Normal) Microbiology Microbiology Date/Time Source Procedure Growth Status 06/13/24 12:12 Voided Urine Urine Culture - Final Pseudomonas aeruginosa Complete 06/13/24 11:05 Blood Blood Culture - Preliminary NO GROWTH AFTER 48 HOURS OF INCUBATION. Resulted 06/12/24 18:45 Nose MRSA Screen - Final Complete Assessment/Plan Assessment/Plan * Coronary artery disease with previous stents S/P intervention at [facility] for stent placement * Chronic diastolic heart failure. * Abdominal aortic aneurysm with peripheral stents. * Hypertension. * Chronic obstructive pulmonary disease. * acute on Chronic kidney disease, stage 3 ?vasomotor nephropathy * s/p recent intubation * h/o ostomy/reversal * sepsis ?pneumonia Continuing current management. Advised the patient to have physical therapy to walk him to see if he qualify for front wheel walker at home. I informed the daughter who on the phone that I will discharge him today. The daughter is in agreement of taking her father home. Continuing with IV antibiotic. So far cultures negative. We will switch to oral Augmentin when patient DC We will get home health for home safety evaluation and for possible PT if patient let us evaluate for the need of physical therapy at home. Addendum: According to nursing staff, the patient's daughter did not show up to pick him up around 3:00 p.m.. She called and requests care home home facility placement for now. She stated that she can not take care of him at home. mortar worker was consulted and care home home facility was initiated. This medical document was created using an electronic medical record system with [employer] direct computerized dictation system. Although this document has been carefully reviewed, there may still be some phonetic and typographical errors. These areas are purely typographical due to imperfections of the software programs, and do not reflect any compromise in the patient's medical care. My Orders Orders - MANNY SUE MD Procedure Category Date Status Time * Bee Breeder CONS 06/14/24 Transmitted Consult MANNY SUE MD Jun 15, 2024 14:18
--- NOTE | 2024-06-15 18:07 | DVHPN2 ---
Progress Note - Dictate Date Seen: Jun 15, 2024 Medical Necessity Reason Pt with a Central, PICC or Fol: No Subjective Patient was seen and evaluated in follow up. Patient denies any pain or discomfort. Patient is refusing to work with PT. Patients daughter did not pick patient up yesterday, and is now requesting for SNF placement. She stated that she can not take care of him at home. Telemetry reviewed. vital signs Vital Sign Date Time Temp Pulse Resp B/P (MAP) Pulse Ox O2 Delivery O2 Flow Rate FiO2 06/15/24 11:47 97 Room Air 0.0 06/15/24 11:47 21 06/15/24 10:21 71 141/74 06/15/24 08:35 98.1 17 98.1 Total Intake and Output 06/14/24 06/14/24 06/15/24 15:00 23:00 07:00 Intake Total 100 ml 942 ml 400 ml Output Total 850 ml 300 ml Balance 100 ml 92 ml 100 ml medications Current Medications Medications Dose Ordered Sig/Whitney Route Start Time Stop Time Status Last Admin Dose Admin Sodium Chloride 10 ml Q8HR IV 06/12/24 22:00 06/15/24 06:12 10 ML Acetaminophen/ Hydrocodone Bitart 1 tab Q4HP PRN PO 06/12/24 18:00 Acetaminophen 650 mg Q6HP PRN PO 06/12/24 18:00 06/12/24 18:27 650 MG Nitroglycerin 0.4 mg Q5MINP PRN SL 06/12/24 18:00 Morphine Sulfate 2 mg Q30M PRN IV 06/12/24 18:00 Aspirin 81 mg DAILY PO 06/13/24 10:00 06/15/24 10:21 81 MG Clopidogrel Bisulfate 75 mg DAILY PO 06/13/24 10:00 06/15/24 10:20 75 MG Albuterol 2.5 mg Q6HPRN PRN NEB 06/12/24 18:00 Ipratropium [place] 0.5 mg Q6HPRN PRN NEB 06/12/24 18:00 Amlodipine Besylate 10 mg DAILY PO 06/13/24 10:00 06/15/24 10:20 10 MG Atorvastatin Calcium 80 mg HS PO 06/12/24 22:00 06/14/24 21:04 80 MG Carvedilol 12.5 mg Q12HR PO 06/12/24 22:00 06/15/24 10:21 12.5 MG Melatonin 5 mg HS PO 06/12/24 22:00 06/14/24 21:04 5 MG Polyethylene Glycol 17 gm DAILYPRN PRN PO 06/12/24 18:00 Tamsulosin HCl 0.4 mg QPM PO 06/12/24 18:00 06/14/24 17:53 0.4 MG Ondansetron HCl 4 mg Q6HPRN PRN IV 06/12/24 18:00 Piperacillin Sod/ Tazobactam Sod 100 ml @ 25 mls/hr Q12HR IV 06/13/24 22:00 06/15/24 10:19 25 MLS/HR Sodium Chloride 1,000 ml @ 60 mls/hr [id number] IV 06/13/24 10:15 06/13/24 11:05 60 MLS/HR objective GENERAL: Awake, alert, oriented. LUNGS: Clear. CARDIOVASCULAR: Heart sounds are good. ABDOMEN: Soft. laboratory and microbiology Laboratory Tests 06/14/24 13:15 Test 06/14/24 13:15 Range/Units Serum Glucose 98 74-106 mg/dL Problem List ACS. NSTEMI. CAD with stents. HTN. End-stage dilated cardiomyopathy. S/P PTCA with stent to RCA. Assessment/Plan Continued all current supportive medical care. Morphine and [place] for pain management. Amlodipine. Aspirin, Lipitor, Plavix. Coreg. Diuretics with Lasix. Additional plan as per the hospital course. Dietary Evaluation Review Comments: Offer Ensure HP PO BID supplements, accommondate his likes and dislike within his dietary regimen. Expected Outcomes/Goals: Improved skin score, prevent wounds and gradual wt gain. Plan discussed with: Patient KRISTIN SIBLEY MD Jun 15, 2024 12:07
--- NOTE | 2024-06-18 09:01 | DVHDS2 ---
Discharge Summary Date of Admission Jun 12, 2024 at 14:47 Date of Discharge: Jun 15, 2024 Admitting Diagnosis * Coronary artery disease with previous stents S/P intervention at [facility] for stent placement * Chronic diastolic heart failure. * Abdominal aortic aneurysm with peripheral stents. * Hypertension. * Chronic obstructive pulmonary disease. * acute on Chronic kidney disease, stage 3 ?vasomotor nephropathy * s/p recent intubation * h/o ostomy/reversal * sepsis ?pneumonia Labs/Diagnostic Data: Laboratory Results Test 06/14/24 13:15 06/13/24 12:12 06/13/24 06:34 White Blood Count 11.9 10^3/uL (4.4-10.8) Red Blood Count 3.88 10^6/uL (4.5-5.90) Hemoglobin 11.5 g/dL (13.5-17.5) Hematocrit 35.2 % (41.0-53.0) Mean Corpuscular Volume 90.6 fL (80.0-100.0) Mean Corpuscular Hemoglobin 29.6 pg (28.0-32.0) Mean Corpuscular Hemoglobin Concent 32.6 g/dL (32.0-36.0) Red Cell Distribution Width 14.6 % (11.8-14.3) Platelet Count 299 10^3/uL (140-450) Mean Platelet Volume 7.7 fL (6.9-10.8) Neutrophils (%) (Auto) 81.3 % (37.0-80.0) Lymphocytes (%) (Auto) 10.4 % (10.0-50.0) Monocytes (%) (Auto) 6.4 % (0.0-12.0) Eosinophils (%) (Auto) 1.5 % (0.0-7.0) Basophils (%) (Auto) 0.4 % (0.0-2.0) Neutrophils # (Auto) 9.7 10 ^3/uL (1.6-8.6) Lymphocytes # (Auto) 1.2 10 ^3/uL (0.4-5.4) Monocytes # (Auto) 0.8 10 ^3/uL (0-1.3) Eosinophils # (Auto) 0.2 10 ^3/uL (0-0.8) Basophils # (Auto) 0 10 ^3/uL (0-0.2) Nucleated Red Blood Cells 0.0 % Sodium Level 135 mmol/L (136-145) Potassium Level 4.0 mmol/L (3.5-5.1) Chloride Level 96 mmol/L (98-107) Carbon Dioxide Level 30 mmol/L (20-31) Anion Gap 9 (5-15) Blood Urea Nitrogen 27 mg/dL (9-23) Creatinine 2.36 mg/dL (0.700-1.30) Glomerular Filtration Rate Calc 29 mL/min (>90) BUN/Creatinine Ratio 11.4 (10.0-20.0) Serum Glucose 98 mg/dL (74-106) Calcium Level 9.3 mg/dL (8.7-10.4) Urine Color Light-yellow (Yellow) Urine Clarity Turbid (Clear) Urine pH 6.5 (5.0-9.0) Urine Specific [place] 1.009 (1.001-1.035) Urine Protein 1+ (Negative) Urine Ketones Negative (Negative) Urine Blood 1+ /uL (Negative) Urine Nitrite Negative (Negative) Urine Bilirubin Negative (Negative) Urine Urobilinogen Normal mg/dL (Negative) Urine Leukocyte Esterase 3+ /uL (Negative) Urine RBC 12 /hpf (0 - 3) Urine Microscopic WBC 115 /HPF (0-3) Urine Squamous Epithelial Cells Few /hpf (<5) Urine Bacteria Few /hpf (None Seen) Urine Mucus Few (None Seen) Urine Yeast (Budding) Occasional /hpf (None Urine Glucose Normal mg/dL (Normal) Total Bilirubin 0.7 mg/dL (0.2-1.0) Aspartate Amino Transferase (AST) 20 U/L (13-40) Alanine Aminotransferase (ALT) 16 U/L (7-40) Alkaline Phosphatase 93 U/L (46-116) Total Protein 7.5 g/dL (5.7-8.2) Albumin 4.1 g/dL (3.2-4.8) Other Laboratory Tests 06/14/24 13:15 Brief Hx & Hospital Course: This is a 68 years old male with past medical history of coronary artery disease, COPD, hypertension, diabetes type 2, chronic kidney disease, cardiac stent, congestive heart failure, colon cancer and AAA repair came from [facility]. Patient apparently was admitted to [facility] and Dr. Maki Strickland supposed to do a left heart catheterization. Apparently Dr. Strickland was not able to stand the RCA and the patient was sent to [facility] for high-risk PCI. The patient had stent placed to the RCA from [facility] on 06/10/2024 and was transferred back to [facility]. The patient is supposed to be discharged yesterday to home however the daughter said she can not take care of him at home because the patient is still weak. So the patient will be sent to shelter home facility for rehab. Today patient will be transferred to [facility] for rehab. Follow up with primary care physician 1-2 weeks. Follow up with citizenship instructor per schedule. Physical exam: HEENT: Normocephalic atraumatic pupils equal react to light and accommodation. Extraocular muscles intact, conjunctiva pink, oropharynx moist, no thrush, no exudate. Lymphatic: No lymphadenopathy Cardiovascular exam: S1, S2 was heard. No murmurs, rubs, gallops Lung: Clear on auscultation bilaterally, no wheeze, rale, rhonchi. GI: Abdominal soft, nondistended, nontenderness, positive bowel sounds. Extremity: No crepitus, cyanosis, edema. Pedal pulses present bilateral. Full range of motion. Skin: Normal turgor, no rash. Psych: Alert, oriented x3. Neurology: No focal deficits, cranial nerve II to XII grossly intact. This medical document was created using an electronic medical record system with [employer] direct computerized dictation system. Although this document has been carefully reviewed, there may still be some phonetic and typographical errors. These areas are purely typographical due to imperfections of the software programs, and do not reflect any compromise in the patient's medical care. Condition at Discharge: Stable Final Diagnosis/Problems List * Coronary artery disease with previous stents S/P intervention at [facility] for stent placement * Chronic diastolic heart failure. * Abdominal aortic aneurysm with peripheral stents. * Hypertension. * Chronic obstructive pulmonary disease. * acute on Chronic kidney disease, stage 3 ?vasomotor nephropathy * s/p recent intubation * h/o ostomy/reversal * sepsis ?pneumonia Discharge Disposition: Home Discharge Instruct/Medications Diet: Cardiac 2g Na,low cholest Activity: No Restrictions, As Tolerated Follow Up/Referral: pcp 1-2 weeks cardiology per schedule Discharge Statement: "Patient was advised to return to the ER or call 911 if any headaches, dizziness, shortness of breath, chest pain, abdominal pain, bleeding, fevers, or worsening of medical condition. Patient was counseled about treatment plan, medications, possible side effects, patientverbalized understanding. All questions were answered to the best of my ability. This discharge took greater then 30 minutes in planning, reviewing documentation, counseling the patient, and discussing with other team members." ASSESSMENT ASSESSMENT Assessment NSTEMI Date of Service: Jun 15, 2024 Billing Provider: MANNY SUE MD Common Visit Codes: 35850-NAZ/OBS DISCH DAY >30min MANNY SUE MD Jun 18, 2024 09:00
== END 2024-06-15 20:54 | DRG 871 ==
LOC: OVERFLOW 14:47 → TELE-CENTR 15:01
PROVIDERS: ADMIT Internal Medicine; ATTEND Internal Medicine
DX: A41.9 Sepsis, unspecified organism (principal); I21.4 Non-ST elevation (NSTEMI) myocardial infarction; J18.9 Pneumonia, unspecified organism; N17.0 Acute kidney failure with tubular necrosis; I42.0 Dilated cardiomyopathy; N39.0 Urinary tract infection, site not specified; I50.32 Chronic diastolic (congestive) heart failure; C18.9 Malignant neoplasm of colon, unspecified; I13.0 Hypertensive heart and chronic kidney disease with heart failure and stage 1 through stage 4 chronic kidney disease, or unspecified chronic kidney disease; J44.0 Chronic obstructive pulmonary disease with (acute) lower respiratory infection; I25.10 Atherosclerotic heart disease of native coronary artery without angina pectoris; N18.30 Chronic kidney disease, stage 3 unspecified; I71.40 Abdominal aortic aneurysm, without rupture, unspecified; E11.22 Type 2 diabetes mellitus with diabetic chronic kidney disease; Z53.20 Procedure and treatment not carried out because of patient's decision for unspecified reasons; Z85.038 Personal history of other malignant neoplasm of large intestine; Z86.79 Personal history of other diseases of the circulatory system; Z87.891 Personal history of nicotine dependence; Z95.5 Presence of coronary angioplasty implant and graft
CPT/HCPCS: 36415; 71045; 80048; 80053; 81001; 85025; 87040; 87081; 87086; 87088; 87186; 97110; 97116; 97162; 97530; G0378; J2543